=== PATIENT | male | born 1970 | race Caucasian/White ===

== ENCOUNTER 2017-02-16 17:29 | Inpatient (IN) | payer OTHER ==
[2017-02-16] MEDS ORDERED: NORMAL SALINE 1,000 ML IV ONE (17:40)
--- OUTSIDE RECORDS SUMMARY | 2017-02-16 17:59 | XMS REPORT | Clinical Summary ---
:1970 Author Organization [facility] Address Unavailable [place] Montes [address] Care Team Providers Name Role Phone Unavailable Primary Care Provider Unavailable Source Comments This disclosure is being made pursuant to the [employer] program and maynot contain all information available regarding this patient.[facility] Allergies No Known Allergies Current Medications Be aware that medications may not be up to date as of this document. Alwaysverify current medications with the patient. Prescription Sig. Disp. Refills Start Date End Date Status aspirin 81 MG EC Take 81 mg by Active tablet mouth daily. atorvastatin (LIPITOR) Take 40 mg by Active 80 MG tablet mouth every evening. clopidogrel (PLAVIX) Take 75 mg by Active 75 MG tablet mouth daily. metoprolol succinate Take 25 mg by Active (TOPROL-XL) 25 MG 24 mouth daily. hr tablet DULoxetine (CYMBALTA) Take 1 capsule by 30 capsule 6 10/19/2015 Active 60 MG capsule mouth daily. lisinopril Take 2.5 mg by Active (PRINIVIL,ZESTRIL) 2.5 mouth daily. MG tablet fluticasone (FLONASE) 2 sprays by Nasal Active 50 MCG/ACT nasal spray route daily. to each nostril Unclassified (UNABLE Durable Medical Active TO FIND) Equipment, Front wheeled walker mupirocin (BACTROBAN) Apply a small Active 2 % ointment amount to affected area(s) twice daily. albuterol (PROAIR Inhale 2 puffs Active HFA;PROVENTIL into the lungs HFA;VENTOLIN HFA) 108 every 4 (four) to (90 Base) MCG/ACT 6 (six) hours as inhaler needed. Active Problems Problem Noted Date Bilateral carpal tunnel syndrome 01/22/2017 Cervicalgia 09/15/2014 Myoclonus 09/15/2014 Spinal stenosis in cervical region 05/06/2014 Dystonia 05/06/2014 Encounters Date Type Specialty Care Team Description 02/14/2017 Orders Only Provider, Not In System 01/22/2017 Office Visit Orthopedic Surgery Arianna, Bilateral carpal tunnel MD Shiva syndrome (Primary Dx) 01/05/2017 Abstract Orthopedic Surgery Edilma Gaming RN from Last 3 Months Family History Medical History Relation Name Comments Cancer Father oral Cancer Maternal Grandfather Diabetes Maternal Grandfather Dementia Maternal Grandmother No Known Problems Mother Relation Name Status Comments Father (Age 56) Maternal Grandfather (Age 48) Maternal Grandmother Mother Social History Tobacco Use Types Packs/Day Years Used Date Current Every Day Smoker 1 Smokeless Tobacco: Never Used Tobacco Cessation:Ready to Quit: Yes; Counseling Given: Yes Alcohol Use Drinks/Week oz/Week Comments No Alcoholic Drinks/day: CURRENT ALCOHOL USER Sex Assigned at Date Recorded Not on file Last Filed Vital Signs Vital Sign Reading Time Taken Blood Pressure 108/73 02/13/2017 2:04 PM CDT Pulse 74 02/13/2017 2:04 PM CDT Temperature 36.6 C (97.9 F) 01/22/2017 2:36 PM CDT Respiratory Rate 18 01/22/2017 2:36 PM CDT Oxygen Saturation 100% 02/13/2017 2:04 PM CDT Inhaled Oxygen Concentration - - Weight 52.2 kg (115 lb) 01/22/2017 2:36 PM CDT Height 162.6 cm (5' 4") 01/22/2017 2:36 PM CDT Body Mass Index 19.74 01/22/2017 2:36 PM CDT Plan of Treatment Date Type Specialty Care Team Description 02/21/2017 Appointment Orthopedic Surgery Shiva Keller MD [address] [place] [phone] Health Maintenance Due Date Last Done Comments Pneumococcal Medium Risk 19-64 yo (1 of 1 - PPSV23) 1989 Tetanus/Pertussis (1 - Tdap) 1989 INFLUENZA IMMUNIZATION (#1) 2017 Results EMG (01/03/2017)from Last 3 Months Insurance Payer Benefit Plan / Subscriber ID Type Phone Address Group [employer] OF [employer] [facility] [id number] Out of State [phone] [facility] PROVIDERS ONLY [address] [place] [address] [employer] [employer] [id number] [facility] [phone] [place] [address] [place], [place] [id number] Home: [address] [phone] [place], [place] [address]
[2017-02-16 18:00] LABS: Hematocrit 30.1 % (42.0-52.0); Hemoglobin 10.3 gm/dL (13.5-18.0); Mean Cell Volume 98.4 fl (78-100); Mean Corpuscular Hemoglobin 33.7 pg (27-31); Mean Corpuscular Hgb Conc 34.2 g/dl (32-36); Mean Platelet Volume 9.6 fl (6.0-9.5); Platelet Count 469 K/mm3 (150-450); Red Blood Count 3.06 M/mm3 (4.7-6.0); Red Cell Distribution Width 14.9 % (11.5-14.0); White Blood Count 11.7 K/mm3 (4.0-10.5)
--- OUTSIDE RECORDS SUMMARY | 2017-02-16 18:00 | XMS REPORT | Encounter Summary ---
:1970 Author Organization [employer] Address Unavailable CARYN Montes [address] Care Team Providers Name Role Phone Unavailable Primary Care Provider Unavailable Reason for Visit Reason Comments Hand Pain bilateral hands Numbness bilateral hands Encounter Details Date Type Department Care Team Description 01/22/2017 Office Visit [facility] Arianna, Bilateral carpal Neil Orthopedics MD Shiva tunnel syndrome [address] (Primary Dx) [address] [facility] 3 [place] [address] [place], [place] [phone] Social History Tobacco Use Types Packs/Day Years Used Date Current Every Day Smoker 1 Smokeless Tobacco: Never Used Alcohol Use Drinks/Week oz/Week Comments No Alcoholic Drinks/day: CURRENT ALCOHOL USER Sex Assigned at Date Recorded Not on file as of this encounter Last Filed Vital Signs Vital Sign Reading Time Taken Blood Pressure 124/83 01/22/2017 2:36 PM CDT Pulse 93 01/22/2017 2:36 PM CDT Temperature 36.6 C (97.9 F) 01/22/2017 2:36 PM CDT Respiratory Rate 18 01/22/2017 2:36 PM CDT Oxygen Saturation 98% 01/22/2017 2:36 PM CDT Inhaled Oxygen Concentration - - Weight 52.2 kg (115 lb) 01/22/2017 2:36 PM CDT Height 162.6 cm (5' 4") 01/22/2017 2:36 PM CDT Body Mass Index 19.74 01/22/2017 2:36 PM CDT in this encounter Instructions Patient Instructions - Ursula Gunn RN - 01/22/2017 3:02 PM CDTPatient Recommendations: DATES FOR SURGERY AND PRE-OP APPOINTMENTS: Your surgery is planned for 02/06/17. This date pending surgical approval by your insurance company. [facility] [employer] will confirm the actual time of your surgery the day prior to surgery. SURGERY CONSENT The surigcal risks have been explained and you have SIGNED the consent for surgery. INSURANCE PRE-CERTIFICATION: Your insurance pre-certifcation is not yet completed. Our office will contact you if we need to reschedule your surgery due to insurance approval. PRE-SURGICAL INSTUCTIONS: Complete the body washing instructions as described in the surgery preparation handout and as instructed in your pre-surgery education session. You may have a LIGHT breakfast the morning of your procedure. You will need to take any medication for heart, blood pressure, or seizures with a SIP of water the morning of your procedure. POST SURGICAL WOUND (surgical site) CARE: After you leave the hospital or surgery center, it is important that your surgical site (wound) is kept clean and dry. This helps you heal faster and helps prevent infection. Follow these instructions unless told otherwise by your doctors. Always wash your hands before and after touching your wound or the dressing of your wound. Keep area clean and dry. Avoid touching incision directly, getting dressing wet or scratching area around dressing. Follow the Doctor's discharge instructions given by the surgical staff. Contact our office if you have any problems with your surgical site dressing. POST SURGICAL COMPLICATION INSTRUCTIONS: Call our office if you develop new symptoms such as: You have a fever> 101. Inreased wound pain not related to activity. Increased cloudy andor colored drainage from wound. The wound opens up and/or becomes hot, red and tender. The wound has excessive drainage or dressing becomes wet. You have unusual shortness of breath or experience unusal chest pain. POST SURGICAL APPOINTMENTS A follow-up appointment will be scheduled by the surgical department prior to your discharge. Please contact our office if you did not receive an appointment date and time with the doctor or nurse when discharged from the hospital after surgery.in this encounter Progress Notes Shiva Keller MD - 01/22/2017 2:25 PM CDTFormatting of this note may be different from the original. Subjective: Patient ID: Mukesh Montague is a 46 y.o. male. Chief Complaint: HPI Patient states that his bilateral pain in hands has bothered him since he was about 17 years old, but in the last few years the pain, numbness, tingling and lightening bolt feeling has increased to multiple times daily. Patient states that painis a 7 on pian scale 0-10 on bad days. HE has had EMG studies done by Dr. Wolf at [facility]. 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 Patient states that he has numbness in all fingers, and the knuckles feel like they drop out of place on the LEFT hand. Bilateral hand pain and numbness. Social History Occupational History Employer Unknown Social History Main Topics Smoking status: Current Every Day Smoker -- 1.00 packs/day Smokeless tobacco: Never Used Alcohol Use: No Comment: Alcoholic Drinks/day: CURRENT ALCOHOL USER Drug Use: No Sexual Activity: Not on file Review of Systems Constitutional: Negative. HENT: Negative. Eyes: Negative. Respiratory: Negative. Cardiovascular: Negative. Gastrointestinal: Negative. Endocrine: Negative. Genitourinary: Negative. Musculoskeletal: Positive for arthralgias (bilateral hand pain and numbness). Skin: Negative. Allergic/Immunologic: Negative. Neurological: Negative. Hematological: Negative. Psychiatric/Behavioral: Negative. Objective: Ortho Exam Ears- Normal external ear bilaterally. Heart- S1 and S2 heard with normal rate and rhytm. Lungs- Clear lungs sounds bilaterally. Gastro- Active bowel sounds in all 4 quadrants. Pscyo- Alert and oriented X 3. MSK; BILATERAL HANDS W/O ATROPHY OR DEFORMITY +PHALENS BILATERAL +TINELS AT WRIST BILATERAL DIMINSHED MEDIAN SENSORY BILATERAL WORSE L INDEX COMPLETELY NUMB APB AND DI INTACT Assessment: 1. Bilateral carpal tunnel syndrome Plan: Bilateral Carpal tunnel release ESTIMATED TIME ALLOWED: 1 hours Hospital Status:outpatient, Surgery date is planned for 02/06/17, Pre-op Education at [facility]: none needed, History and physical with Lizette Felix DO: none needed. SURGICAL CONSENT: The surigcal risks have been explained and the consent for surgery has been signed. PAR CONSENT SIGNED: Yes. LATEX ALLERGY: No: INSURANCE PRE-CERTIFICATION:To be completed PRE-OP LABORATORY/ORDERS: None needed PRE-OP INSTRUCTIONS: Body washing instructions Yes NPO after midnight the night before surgery yes Instructed to take heart, blood pressure, and seizure medication with a sip of water: Yes ANESTHESIA: local DAY OF SURGERY MEDICATION ORDER: Mediation order: Ativan 2 mg oral preop. Kelfex 500 mg 1 oral preop. Orally VENDOR: none SPECIAL SURGERY EQUIPMENT: none POST-OP WOUND CARE: Post-op surgical site instructions have been given to the patient. Wash hands before and after touching wound., Keep area clean and dry, Avoid touching, scratching and getting dressing wet, Follow the Doctor's discharge instructions given by the surgical staff. POST-OP COMPLICATION INSTRUCTIONS: Instructed to call if he develops new or worsening symptoms, including fever, increasing pain, cloudy and/or colored wound drainage, wound opens, excessive draining,shortness of breath, and chest pain. POST-OP APPOINTMENTS: Schedule a post-op follow-up appointment in 7 day(s). in this encounter Plan of Treatment Date Type Specialty Care Team Description 02/21/2017 Appointment Orthopedic Surgery Shiva Keller MD [address] [phone] as of this encounter Visit Diagnoses Diagnosis Bilateral carpal tunnel syndrome - Primary Carpal tunnel syndrome in this encounter
--- OUTSIDE RECORDS SUMMARY | 2017-02-16 18:00 | XMS REPORT | Encounter Summary ---
:1970 Author Organization [employer] [place] [address] Care Team Providers Name Role Phone Unavailable Primary Care Provider Unavailable Encounter Details Date Type Department Care Team Description 02/14/2017 Orders Only [facility] Provider, Not In Centralized Scanning System Social History Tobacco Use Types Packs/Day Years Used Date Current Every Day Smoker 1 Smokeless Tobacco: Never Used Alcohol Use Drinks/Week oz/Week Comments No Alcoholic Drinks/day: CURRENT ALCOHOL USER Sex Assigned at Date Recorded Not on file as of this encounter Plan of Treatment Date Type Specialty Care Team Description 02/21/2017 Appointment Orthopedic Surgery Shiva Keller MD [employer] [facility] [phone] as of this encounter Visit Diagnoses Not on filein this encounter
--- OUTSIDE RECORDS SUMMARY | 2017-02-16 18:00 | XMS REPORT | Encounter Summary ---
:1970 Author Organization [employer] [place] [address] Care Team Providers Name Role Phone Unavailable Primary Care Provider Unavailable Encounter Details Date Type Department Care Team Description 01/05/2017 [facility] [address] [place] [address], [facility] [address] [place] [address] [place] [address] Social History Tobacco Use Types Packs/Day Years Used Date Current Every Day Smoker 1 Smokeless Tobacco: Never Used Alcohol Use Drinks/Week oz/Week Comments No Alcoholic Drinks/day: CURRENT ALCOHOL USER Sex Assigned at Date Recorded Not on file as of this encounter Plan of Treatment Date Type Specialty Care Team Description 02/21/2017 Appointment [place] [address] [place] [address] 3 [place] [phone] as of this encounter Visit Diagnoses Not on filein this encounter
[2017-02-16] MEDS ORDERED: HYDROmorphone HCL 1 MG/ML DISP.SYRIN IV ONE (18:16)
--- NOTE | 2017-02-16 18:16 | ERNOTE ---
Medical Problem HPI - Narrative Date of Service: 02/16/17 - General Chief Complaint: General Assessment Time Seen by Provider: 02/16/17 17:31 Source: patient Exam Limitations: no limitations - Immun/Allergies/Home Medications Immunizations: IMMUNIZATION HX Immunizations Up to Date No History of Influenza Vaccine No Allergies/Adverse Reactions: Allergies No Known Allergies Allergy (Unverified 02/16/17 17:41) Home Medications: HOME MEDICATIONS Aspirin [Children's Aspirin] 81 mg PO DAILY 02/16/17 [Last Taken Unknown] Atorvastatin Calcium [Lipitor] 40 mg PO HS 02/16/17 [Last Taken Unknown] Duloxetine HCl [Cymbalta] 60 mg PO DAILY 02/16/17 [Last Taken Unknown] Lisinopril [Zestril] 2.5 mg PO DAILY 02/16/17 [Last Taken Unknown] Metoprolol Succinate 25 mg PO DAILY 02/16/17 [Last Taken Unknown] Nortriptyline HCl 10 mg PO HS 02/16/17 [Last Taken Unknown] Pantoprazole Sodium [Protonix] 40 mg PO DAILY 02/16/17 [Last Taken Unknown] tiZANidine HCL [Tizanidine HCl] 4 mg PO DAILY 02/16/17 [Last Taken Unknown] - History of Present History Narrative: Patient presents to the ED after being told to go to the ED by his PCP. He was recently in the hospital with acute pancreatitis. He was noted on labs to have increasing lipase. Also increasing live enzymes. He had been in the hospital for 3 days. Does use alcohol. He still has pain in the epigastrium but no vomiting. Nothing makes it better or worse. No diarrhea. No CP or SOB. No fever. Timing: other - fluctuating Severity: moderate Modifying Factors - (Improves): Present: medication Modifying Factors - (Worsens): Present: other - eating Review of Systems - Review of Systems Constitutional: Absent: fever Respiratory: Absent: shortness of breath Cardiology: Absent: chest pain Gastrointestinal/Abdominal: Present: See HPI Genitourinary: Absent: dysuria All Other Systems: All systems neg except as marked - Patient's Past Medical History Patient History - Medical: Arthritis Patient History - Cardiac/Respiratory: Myocardial Infarction Patient History - Cancer: No Hx of Cancer Patient History - Surgical Procedures: Cardiac stent Patient History - Other: None - Social History Living Situations: home Psych History: No pertinent hx Smoking Status: Current every day smoker Have you smoked in the past 12 months: Yes Alcohol Use: none Drug Use: none - Immunizations Immunizations Up to Date: No History of Influenza Vaccine: No Physical Exam - Physical Exam General Appearance: Present: alert, no apparent distress Head Exam: Present: normal inspection Eye Exam: Normal inspection: bilateral, PERRL: bilateral Ears, Nose, Throat: Present: normal ENT inspection Neck: Present: normal inspection Respiratory: Present: no respiratory distress, normal breath sounds, lungs clear Cardiovascular/Chest: Present: regular rate, rhythm Gastrointestinal/Abdominal: Present: normal bowel sounds, soft, tenderness, other - epigastric tenderness without peritoneal signs. Moderate. Back Exam: Present: normal range of motion Extremity Exam: Present: normal inspection Neurological Exam: Present: alert, normal mood/affect, no motor/sensory deficits Skin Exam: Present: normal color, warm/dry ED Progress - Results and Orders Patient's Lab Results:: I have reviewed the patient's lab results. - Vital Signs Patient's Vital Signs:: I have reviewed the patient's vital signs. Vital Signs: Vital Signs 02/16/17 17:38 Temperature 36.8 C Pulse Rate 88 Respiratory 16 Rate Blood Pressure 99/66 O2 Sat by Pulse 99 Oximetry - Progress/Reassessment Chief Complaint: General Assessment Progress Note-Subjective: 02/16/17 19:47 D/W Hospitalist. Admit. RUQ ordered at Hospitalist request. patient agreeable. Departure - Departure Clinical Impression: Pancreatitis Disposition: [facility] Condition: Stable
[2017-02-16 18:21] LABS: Albumin * 2.8 gm/dl (3.4-5.0); Anion Gap 12.8 mmol/L (6.8-13.8); BUN/Creatinine Ratio 4.9 (9.0-21.6); Bilirubin, Total 0.1 mg/dL (0.0-1.1); Ca. Corrected For Albumin 8.6 mg/dL (8.4-10.2); Carbon Dioxide 25.8 mmol/L (24-32.6); Potassium 3.6 mmol/L (3.4-4.6); Total Protein 6.3 gm/dL (6.2-8.2)
[2017-02-16 18:23] LABS: Total Cells Counted 100
[2017-02-16 18:36] LABS: Band 2 % (0-2.0); Eosinophil 3 % (0-3); Lymphocyte 25 % (20-51); Monocyte 9 % (0-9); Neutrophil 61 % (42-75); Neutrophil # 7.1 K/mm3 (1.3-6.0)
[2017-02-16 18:37] LABS: Dohle Bodies 2+; Platelet Estimate Increased (NORMAL); Target Cells 1+
[2017-02-16] MEDS ORDERED: NICOTINE 21 MG PATC TD ONE (19:07)
[2017-02-16] MEDS: NICOTINE 21 MG PATC TD SCH (19:08)
--- OUTSIDE RECORDS SUMMARY | 2017-02-16 19:49 | XMS REPORT | Encounter Summary ---
:1970 Author Organization [employer] [place] [address] Care Team Providers Name Role Phone Unavailable Primary Care Provider Unavailable Encounter Details Date Type Department Care Team Description [facility]/05/2017 [facility] [address] [place] [address], [facility] [address] [place] [address] [place] [address] Social History Tobacco Use Types Packs/Day Years Used Date Current Every Day Smoker 1 Smokeless Tobacco: Never Used Alcohol Use Drinks/Week oz/Week Comments No Alcoholic Drinks/day: CURRENT ALCOHOL USER Sex Assigned at Date Recorded Not on file as of this encounter Plan of Treatment Date Type Specialty Care Team Description 02/21/2017 Appointment [place] [address] [place] [address] 3 [place] [phone] as of this encounter Visit Diagnoses Not on filein this encounter
--- OUTSIDE RECORDS SUMMARY | 2017-02-16 19:49 | XMS REPORT | Encounter Summary ---
:1970 Author Organization [employer] [place] [address] Care Team Providers Name Role Phone Unavailable Primary Care Provider Unavailable Encounter Details Date Type Department Care Team Description 02/14/2017 Orders Only [facility] Provider, Not In Centralized Scanning System Social History Tobacco Use Types Packs/Day Years Used Date Current Every Day Smoker 1 Smokeless Tobacco: Never Used Alcohol Use Drinks/Week oz/Week Comments No Alcoholic Drinks/day: CURRENT ALCOHOL USER Sex Assigned at Date Recorded Not on file as of this encounter Plan of Treatment Date Type Specialty Care Team Description 02/21/2017 Appointment Orthopedic Surgery Shiva Keller MD [facility] [phone] as of this encounter Visit Diagnoses Not on filein this encounter
--- OUTSIDE RECORDS SUMMARY | 2017-02-16 19:49 | XMS REPORT | Encounter Summary ---
:1970 Author Organization [employer] Address Unavailable CARY[place] Montes [address] Care Team Providers Name Role Phone Unavailable Primary Care Provider Unavailable Reason for Visit Reason Comments Hand Pain bilateral hands Numbness bilateral hands Encounter Details Date Type Department Care Team Description 01/22/2017 Office Visit [facility] Arianna, Bilateral carpal Neil Orthopedics MD Shiva tunnel syndrome [address] (Primary Dx) [address] [facility] 3 [place] [address] [place], [place] [phone] Social History Tobacco Use Types Packs/Day [...] surgical approval by your insurance company. [facility] will confirm the actual time of your [...] EMG studies done by Dr. Wolf at [facility]. 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
--- OUTSIDE RECORDS SUMMARY | 2017-02-16 19:49 | XMS REPORT | Clinical Summary ---
:1970 Author Organization [employer] Address Unavailable CARY[place] Montes [address] Care Team Providers Name Role Phone Unavailable Primary Care Provider Unavailable Source Comments This disclosure is being made pursuant to the [employer] program and maynot contain all information available regarding this patient.[employer] Allergies No Known Allergies Current Medications Be [...] 02/21/2017 Appointment Orthopedic Surgery Shiva Keller MD [address] [place] [phone] Health Maintenance Due Date Last Done Comments Pneumococcal Medium Risk 19-64 yo (1 of 1 - PPSV23) 1989 Tetanus/Pertussis (1 - Tdap) 1989 INFLUENZA IMMUNIZATION (#1) 2017 Results EMG (01/03/2017)from Last 3 Months Insurance Payer Benefit Plan / Subscriber ID Type Phone Address Group [employer] [facility] [id number] Out of State [phone] [facility] PROVIDERS ONLY [address] [place] [address] [employer] [id number] [facility] [phone] [place] [address] [place], [place] [id number] Home: [address] [phone] [place], [place] [address]
[2017-02-16] MEDS ORDERED: HYDROmorphone HCL 1 MG/ML DISP.SYRIN ONE (20:03)
--- NOTE | 2017-02-16 21:08 | HP ---
Chief Complaint - Chief Complaint Date of Service: 02/16/17 Time of Service: 21:00 Chief Complaint: " Elevated Liver Enzymes". Source of HPI- Pt; reliable, ER provider report. History of Present Illness: Mr. Montague is a 46-yr-old pt who normally sees RAVINDER Irizarry in [place]. His PMH is significant for: Alcohol Dependence, Depression, HTN & MS-s/ p stents in 2014. Pt states that on Last week (02/08/17), he had developed severe abdominal pain that wouldn't go away for the entire day.The pain was accompanied by nausea & vomiting and was worsened with food. He presented to the [facility] later Night where lab-work showed his Amylase and Lipase were dramatically elevated at [address] scan obtained there confirmed he had Acute Pancreatitis. He was kept NPO and diet was slowly advanced to full liquid. However on 02/11, pt demanded to be discharged home. His Amylase and Lipase levels had fallen to nearly limits (168 & 309). His abdominal pain had subsided. He was discharged on Protonix and counselled on stopping alcohol consumption. Pt admits to drinking 12-pack of beer daily and smokes 1 ppd despite suffering an MS 2 yrs ago. He states that he has felt well since being discharged and has cut his alcoholic beverage to 4 cans of beer daily. He states that the only reason for coming to the ED today was because he was advised by his PCP that he needed his lab-work rechecked. His lab results at the ED today was remarkable for elevated Amylase/lipase at 155 & 1751.The US of the abdomen obtained tonight confirmed Acute Pancreatitis, but there was no CBD dilatation, gall bladder sludge /stone, or intrahepatic or extrahepatic dilatation. Mr. Montague denies fever or chills. He also denies nausea, vomiting, and Abdominal Pain. He will be admitted under observation status for acute pancreatitis. - Patient's Past Medical History Patient History - Medical: Arthritis, Depression Patient History - Cardiac/Respiratory: Hypertension, Myocardial Infarction Patient History - Cancer: No Hx of Cancer Patient History - Surgical Procedures: Cardiac stent Patient History - Other: None - Family History Father Family History - Medical: Family History - Cancer: Throat - Social History Living Situations: home Psych History: No pertinent hx Smoking Status: Current every day smoker Have you smoked in the past 12 months: Yes Alcohol Use: none Drug Use: none - Immunizations Immunizations Up to Date: No History of Influenza Vaccine: No Review Of Systems (GEN) - Review of Systems Generalized/Overall Review: Absent: Weakness, Chills, Fever, Malaise, Diaphoresis, Weight loss EENTM: Absent: Eye Pain, Blurred Vision, Nose Congestion Respiratory: Absent: Shortness of Breath, Orthopnea Cardiac: Absent: Chest Pain, Edema, Palpitations Abdominal: Absent: Nausea, Vomiting, Hematemesis, Abdominal Pain Genitourinary: Absent: Burning, Itching, Urgency, Frequency Musculoskeletal: Absent: Joint Pain, Back Pain, Joint Swelling Neurological: Absent: Headache, Anxiety, Depressed Skin: Absent: Dryness, Lesions Endocrine: Absent: Intolerance to Cold, Intolerance to Heat, Flushing, Increased Thirst Misc: All systems neg except as marked Immunizations: IMMUNIZATION HX Immunizations Up to Date No History of Influenza Vaccine No Allergies/Adverse Reactions: Allergies Allergy/AdvReac Type Severity Reaction Status Date / Time No Known Allergies Allergy Unverified 02/16/17 17:41 Home Medications: HOME MEDICATIONS Aspirin [Children's Aspirin] 81 mg PO DAILY 02/16/17 [Last Taken Unknown] Atorvastatin Calcium [Lipitor] 40 mg PO HS 02/16/17 [Last Taken Unknown] Duloxetine HCl [Cymbalta] 60 mg PO DAILY 02/16/17 [Last Taken Unknown] Lisinopril [Zestril] 2.5 mg PO DAILY 02/16/17 [Last Taken Unknown] Metoprolol Succinate 25 mg PO DAILY 02/16/17 [Last Taken Unknown] Nortriptyline HCl 10 mg PO HS 02/16/17 [Last Taken Unknown] Pantoprazole Sodium [Protonix] 40 mg PO DAILY 02/16/17 [Last Taken Unknown] tiZANidine HCL [Tizanidine HCl] 4 mg PO DAILY 02/16/17 [Last Taken Unknown] Exam - Exam Vital Signs: Vital Signs - Last Taken Temp 36.7 C 02/16/17 20:00 Pulse 89 02/16/17 20:26 Resp 16 02/16/17 20:26 BP 122/78 02/16/17 20:26 Pulse Ox 97 02/16/17 20:26 Constitutional: Present: Alert, Oriented x3, Cooperative, No distress ENT Exam: Present: normal ENT inspection Eye Exam: bilateral eye: normal inspection, PERRL Neck: Present: full range of motion, supple, normal inspection Back Exam: Present: normal inspection, no CVA tenderness Breasts: Present: Exam deferred Respiratory: Present: lungs clear, no accessory muscle use Cardiovascular/Chest: Present: normal peripheral pulses, regular rate, rhythm, no edema, no murmur Abdomen: Present: Normal bowel sounds, soft, tender - LLQ /Rectal: Present: Exam deferred Extremity: Present: normal range of motion, non-tender, normal inspection Skin Exam: Present: warm/dry, no cyanosis Lymphatic: Present: no adenopathy Neurologic: Present: no motor/sensory deficits, alert, normal mood/affect, oriented x 3 Appearance: Present: appropriate appearance, appropriate insight Eye contact: Present: cooperative, good eye contact, normal speech Thoughts: Present: normal thought pattern, no apparent hallucination Diagnostic Studies: Laboratory Results WBC 11.7 K/mm3 (4.0-10.5) H 02/16/17 17:50 RBC 3.06 M/mm3 (4.7-6.0) L 02/16/17 17:50 Hgb 10.3 gm/dL (13.5-18.0) L 02/16/17 17:50 Hct 30.1 % (42.0-52.0) L 02/16/17 17:50 MCV 98.4 fl (78-100) 02/16/17 17:50 MCH 33.7 pg (27-31) H 02/16/17 17:50 MCHC 34.2 g/dl (32-36) 02/16/17 17:50 RDW 14.9 % (11.5-14.0) H 02/16/17 17:50 Plt Count 469 K/mm3 (150-450) H 02/16/17 17:50 MPV 9.6 fl (6.0-9.5) H 02/16/17 17:50 Neutrophils % (Manual) 61 % (42-75) 02/16/17 17:50 Band Neuts % (Manual) 2 % (0-2.0) 02/16/17 17:50 Lymphocytes % (Manual) 25 % (20-51) 02/16/17 17:50 Monocytes % (Manual) 9 % (0-9) 02/16/17 17:50 Eosinophils % (Manual) 3 % (0-3) 02/16/17 17:50 Neutrophils # (Manual) 7.1 K/mm3 (1.3-6.0) H 02/16/17 17:50 Lymphocytes # (Manual) 2.9 k/mm3 (1.5-3.5) 02/16/17 17:50 Monocytes # (Manual) 1.1 k/mm3 (0.0-1.0) H 02/16/17 17:50 Eosinophils # (Manual) 0.4 k/mm3 (0.0-0.7) 02/16/17 17:50 Toxic Vacuolation Trace 02/16/17 17:50 Dohle Bodies 2+ 02/16/17 17:50 Platelet Estimate Increased (NORMAL) H 02/16/17 17:50 Target Cells 1+ 02/16/17 17:50 Sodium 135 mmol/L (132-142) 02/16/17 17:50 Plasma Sodium 135 mmol/L (130-142) 02/16/17 17:50 Potassium 3.6 mmol/L (3.4-4.6) 02/16/17 17:50 Chloride 100 mmol/L (97-106) 02/16/17 17:50 Carbon Dioxide 25.8 mmol/L (24-32.6) 02/16/17 17:50 Anion Gap 12.8 mmol/L (6.8-13.8) 02/16/17 17:50 BUN 3 mg/dL (6-23) L 02/16/17 17:50 Creatinine 0.61 mg/dL (0.4-1.4) 02/16/17 17:50 Est GFR (Non-Af Amer) 151 mL/min (60-130) H 02/16/17 17:50 BUN/Creatinine Ratio 4.9 (9.0-21.6) L 02/16/17 17:50 Random Glucose 99 mg/dL (70-110) 02/16/17 17:50 Lactic Acid, Venous 1.9 mmol/L (0.4-1.9) 02/16/17 17:50 Calcium 8.0 mg/dL (7.9-10.9) 02/16/17 17:50 Calcium Adj for Albumin 8.6 mg/dL (8.4-10.2) 02/16/17 17:50 Total Bilirubin 0.1 mg/dL (0.0-1.1) 02/16/17 17:50 AST 40 U/L (0-48) 02/16/17 17:50 ALT 65 U/L (19-67) 02/16/17 17:50 Alkaline Phosphatase 90 U/L (50-170) 02/16/17 17:50 Total Protein 6.3 gm/dL (6.2-8.2) 02/16/17 17:50 Albumin 2.8 gm/dl (3.4-5.0) L 02/16/17 17:50 Amylase 155 U/L (25-115) H 02/16/17 17:50 Lipase 1751 U/L (73-393) H 02/16/17 17:50 Ethyl Alcohol 50.0 mg/dL (0.0-10.0) H 02/16/17 17:50 Assessment/Plan - Assessment/Plan (1) Acute pancreatitis Assessment: Mr. Montague presented to the ED following advise by PCP for his lab-work to be rechecked. He denied having the epigastric tenderness,fevers and chills & n/v. He reported feeling 'infact better than any other times.' and nothing like last week's hospitalization. Lab-work was remarkable for elevated Amylase/ Lipase which were found to be 155/1751. Prior to discharge on 02/11/17 from the [facility], his Amylase/lipase levels were near normal at 169/309. The CT scan that had been obtained at [facility] had confirmed Acute Pancreatitis. An US of the Abdomen was obtained while at the [facility] last night and it also confirmed Acute Pancreatitis and it did not show any evidence of gallstone/sludge and, there was no dilation of the intrahepatic and extrahepatic biliary dilatation, thus eliminating biliary tract disease or gallstone induced pancreatitis. The new medication he was recently started on was Protonix, otherwise he has taken most of this other medications for about 2 yrs and therefore do not suspect that the medications played a role in his acute pancreatitis. I suspect that this is alcohol related especially since his Amylase/lipase levels were nearly normal on day of discharge at [facility], and he admitted to cutting down to 4 cans of beers daily from 12 pck after hospitalization. Will provide aggrassive IVF hydration with LR to prevent pancreatic necrosis. I counselled him again strongly about avoidance of Alcohol in which he seems agreeable, but doubt if he will carry through with the understanding. Since he is asymptomatic, oral feeding may be restarted and therefore will resume regular diet in am. Trend Amylase/Lipase levels. Problem: Acute (2) EtOH dependence Assessment: Will monitor for Alcohol withdrawal syndrome. Use CIWA-Ar to monitor for Withdrawal and Treatment. Consider starting folic acid daily Problem: Chronic (3) Anemia Assessment: Hbg while at [facility] was noted to be 14 and on this admission it is down to 10.3. MCV noted 98 therefore its Macrocytic Anemia and one of the causes are: excess alcohol use or folate and vitamin B12 deficiency. Consider checking the levels. Problem: Acute (4) HTN (hypertension) Assessment: Stable- On metoprolol and Lisinopril. Problem: Chronic (5) Depression Assessment: Stable- On cymbalta and Nortriptyline Problem: Chronic
[2017-02-16] MEDS: RINGER'S SOLUTION,LACTATED 1,000 ML IV PRN (22:26)
[2017-02-17] MEDS ORDERED: ONDANSETRON HCL/PF 2 MG/ML VIAL IV PRN (02:49)
[2017-02-17] MEDS: RINGER'S SOLUTION,LACTATED 1,000 ML IV PRN ×6 (02:52→23:03)
[2017-02-17] MEDS: HYDROmorphone HCL 1 MG/ML DISP.SYRIN IV PRN ×6 (03:52→23:53)
[2017-02-17 05:49] LABS: Hematocrit 29.7 % (42.0-52.0); Hemoglobin 10.3 gm/dL (13.5-18.0); Mean Cell Volume 97.4 fl (78-100); Mean Corpuscular Hemoglobin 33.8 pg (27-31); Mean Corpuscular Hgb Conc 34.7 g/dl (32-36); Mean Platelet Volume 9.7 fl (6.0-9.5); Neutrophil # 6.1 K/mm3 (1.3-6.0); Neutrophil % 59.7 % (42-75.0); Platelet Count 452 K/mm3 (150-450); Red Blood Count 3.05 M/mm3 (4.7-6.0); Red Cell Distribution Width 15.1 % (11.5-14.0); White Blood Count 10.3 K/mm3 (4.0-10.5)
--- NOTE | 2017-02-17 05:55 | PN ---
Subjective - Date and Time Seen Date: 02/17/17 Time: 05:52 Subjective Narrative: Mr. Garcia examined this am. Denies having any nausea or vomiting. Also denies abdominal pain. Says he is ready to quit alcohol with this hospitalization. No other issues according to nursing. Objective - Vitals Vitals: Last Vital Signs Temp 37.0 C 02/17/17 03:00 Pulse 67 02/17/17 03:01 Resp 18 02/17/17 03:00 BP 126/88 02/17/17 03:00 Pulse Ox 94 02/17/17 03:00 - Exam Constitutional: Present: Alert, Oriented x3, Cooperative, No distress ENT Exam: Present: normal ENT inspection, hearing grossly normal Neck: Present: non-tender, full range of motion, supple Breasts: Present: Exam deferred Respiratory: Present: lungs clear, No wheezing Cardiovascular/Chest: Present: normal peripheral pulses, regular rate, rhythm, no chest tenderness, no edema Abdomen: Present: Normal bowel sounds, soft, nontender /Rectal: Present: Exam deferred Extremity: Present: normal range of motion, non-tender, normal inspection Skin Exam: Present: warm/dry, no cyanosis Lymphatic: Present: no adenopathy Neurologic: Present: no motor/sensory deficits, alert, normal mood/affect, oriented x 3 Appearance: Present: appropriate appearance, appropriate insight Eye contact: Present: cooperative, good eye contact, normal speech Thoughts: Present: normal thought pattern, no apparent hallucination Assessment/Plan - Problems/Diagnosis (1) Acute pancreatitis Problem: Acute Narrative: Mr. Montague presented to the ED following advise by PCP for his lab-work to be rechecked. He denied having the epigastric tenderness,fevers and chills & n/v. He reported feeling 'infact better than any other times.' and nothing like last week's hospitalization. Lab-work was remarkable for elevated Amylase/ Lipase which were found to be 155/1751. Prior to discharge on 02/11/17 from the [facility], his Amylase/lipase levels were near normal at 169/309. The CT scan that had been obtained at [facility] had confirmed Acute Pancreatitis. An US of the Abdomen was obtained while at the [facility] last night and it also confirmed Acute Pancreatitis and it did not show any evidence of gallstone/sludge and, there was no dilation of the intrahepatic and extrahepatic biliary dilatation, thus eliminating biliary tract disease or gallstone induced pancreatitis. The new medication he was recently started on was Protonix, otherwise he has taken most of this other medications for about 2 yrs and therefore do not suspect that the medications played a role in his Acute Pancreatitis. I suspect that this is alcohol related especially since his Amylase/lipase levels were nearly normal on day of discharge at [facility], and he admitted to cutting down to 4 cans of beers daily from 12 pck after hospitalization. Continue with aggressive IVF hydration with LR to prevent pancreatic necrosis. I provided additional counselling again today on alcohol cessation and pt states that after this hospitalization, he is going to refrain from alcohol drinking. Will Advance diet to full liquid and trend the Pancreatic enzymes with am labs. (2) EtOH dependence Problem: Chronic Narrative: Will monitor for Alcohol withdrawal syndrome. Use CIWA-Ar to monitor for Withdrawal and Treatment. Consider starting folic acid daily (3) Anemia Problem: Acute Narrative: Hbg while at [facility] was noted to be 14 and on this admission it is down to 10.3. MCV noted 98 therefore its Macrocytic Anemia and one of the causes are: excess alcohol use or folate and vitamin B12 deficiency. Consider checking the levels. (4) HTN (hypertension) Problem: Chronic Narrative: Stable- On metoprolol and Lisinopril. (5) Depression Problem: Chronic Narrative: Stable- On cymbalta and Nortriptyline
[2017-02-17 06:03] LABS: Amylase * 108 U/L (25-115); Lipase 1034 U/L (73-393)
[2017-02-17] MEDS: ASPIRIN 81 MG TAB.CHEW PO SCH (09:55)
[2017-02-17] MEDS: METOPROLOL SUCCINATE 25 MG TABLET.SA PO SCH (09:55)
[2017-02-17] MEDS: PANTOPRAZOLE SODIUM 40 MG TABLET.EC PO SCH (09:55)
[2017-02-17] MEDS: LISINOPRIL 2.5 MG TABLET PO SCH (09:55)
[2017-02-17] MEDS: DULoxetine HCL 30 MG CAPSULE.SA PO SCH (09:56)
[2017-02-17] MEDS: tiZANidine HCL 4 MG TABLET PO SCH (09:56)
[2017-02-17] MEDS: NICOTINE 21 MG PATC TD SCH (19:07)
[2017-02-17] MEDS: ROSUVASTATIN CALCIUM 20 MG TABLET PO SCH (20:21)
[2017-02-17] MEDS: NORTRIPTYLINE HCL 10 MG CAPSULE PO SCH (20:21)
[2017-02-17] MEDS ORDERED: ATORVASTATIN CALCIUM 40 MG TABLET PO SCH (21:00)
[2017-02-18] MEDS: HYDROmorphone HCL 1 MG/ML DISP.SYRIN IV PRN ×4 (02:35→23:48)
[2017-02-18] MEDS: RINGER'S SOLUTION,LACTATED 1,000 ML IV PRN (03:09)
--- NOTE | 2017-02-18 06:53 | PN ---
Subjective - Date and Time Seen Date: 02/18/17 Time: 06:50 Subjective Narrative: Mr. Montague examined this am. Feels hungry and wants to eat. Denies having n/v. States his abdomen hurts but believes its because of lack of eating real food. No other acute events according to nursing. Lipase still elevated with this am lab, but trending down. Objective - Vitals Vitals: Last Vital Signs Temp 36.8 C 02/18/17 02:24 Pulse 68 02/18/17 02:24 Resp 22 H 02/18/17 02:24 BP 140/79 02/18/17 02:24 Pulse Ox 96 02/18/17 02:24 - Abnormal Lab Findings Abnormal Lab Findings: Abnormal Lab Results 02/18/17 Range/Units 05:40 Lipase 738 H (73-393) U/L - Exam Constitutional: Present: Alert, Oriented x3, Cooperative, No distress ENT Exam: Present: normal ENT inspection, hearing grossly normal Neck: Present: non-tender, full range of motion, supple Breasts: Present: Exam deferred Respiratory: Present: lungs clear, normal breath sounds Abdomen: Present: Normal bowel sounds, soft, nontender /Rectal: Present: Exam deferred Extremity: Present: normal range of motion, non-tender, normal inspection, no pedal edema, no calf tenderness Skin Exam: Present: warm/dry, no cyanosis Lymphatic: Present: no adenopathy Neurologic: Present: no motor/sensory deficits, alert, normal mood/affect, oriented x 3. Absent: dizzy/light-headedness Appearance: Present: appropriate appearance, appropriate insight Eye contact: Present: cooperative, good eye contact, normal speech Thoughts: Present: normal thought pattern, no apparent hallucination Assessment/Plan - Problems/Diagnosis (1) Acute pancreatitis Problem: Acute Narrative: Acute pancreatitis likely related to Alcoholism as the US did not suggest any biliary tract disease or gallstone induced pancreatitis. Received aggressive IVF hydration. Will stop the IVF this am. Will advance his diet to Low fiber. Lipase is slowly trending down, This am it is 738. Will plan to discharge when its near normal. repeat lipase in am. (2) EtOH dependence Problem: Chronic Narrative: Not having any signs of alcohol withdrawal symptoms. Continue reinforcing Etoh cessation. Continue protonix-started on this while at [facility] due heavy etoh use and abdominal pain. (3) Anemia Problem: Acute Narrative: Hbg while at [facility] was noted to be 13.8 and on this admission it is down to 10.3. MCV noted 98 therefore its Macrocytic Anemia and one of the causes are: excess alcohol use or folate and vitamin B12 deficiency. Consider checking the levels. (4) HTN (hypertension) Problem: Chronic (5) Depression Problem: Chronic
[2017-02-18] MEDS: ASPIRIN 81 MG TAB.CHEW PO SCH (08:52)
[2017-02-18] MEDS: DULoxetine HCL 30 MG CAPSULE.SA PO SCH (08:52)
[2017-02-18] MEDS: PANTOPRAZOLE SODIUM 40 MG TABLET.EC PO SCH (08:52)
[2017-02-18] MEDS: LISINOPRIL 2.5 MG TABLET PO SCH (08:53)
[2017-02-18] MEDS: tiZANidine HCL 4 MG TABLET PO SCH (08:53)
[2017-02-18] MEDS: METOPROLOL SUCCINATE 25 MG TABLET.SA PO SCH (08:53)
[2017-02-18] MEDS: NICOTINE 21 MG PATC TD SCH (19:26)
[2017-02-18] MEDS: NORTRIPTYLINE HCL 10 MG CAPSULE PO SCH (20:32)
[2017-02-18] MEDS: ROSUVASTATIN CALCIUM 20 MG TABLET PO SCH (20:32)
[2017-02-19] MEDS: HYDROmorphone HCL 1 MG/ML DISP.SYRIN IV PRN (02:20)
--- NOTE | 2017-02-19 06:00 | DS ---
(1) Acute pancreatitis Problem: Acute (2) EtOH dependence Problem: Chronic (3) Anemia Problem: Acute (4) HTN (hypertension) Problem: Chronic (5) Depression Problem: Chronic Description of Stay: Admission HPI Mr. Montague is a 46-yr-old pt who normally sees RAVINDER Irizarry in [place]. His PMH is significant for: Alcohol Dependence, Depression, HTN & MN-s/ p stents in 2014. Pt states that on Last week (02/08/17), he had developed severe abdominal pain that wouldn't go away for the entire day.The pain was accompanied by nausea & vomiting and was worsened with food. He presented to the [facility] ([facility] later Night where lab-work showed his Amylase and Lipase were dramatically elevated at [address] scan obtained there confirmed he had Acute Pancreatitis. He was kept NPO and diet was slowly advanced to full liquid. However on 02/11, pt demanded to be discharged home. His Amylase and Lipase levels had fallen to nearly limits (168 & 309). His abdominal pain had subsided. He was discharged on Protonix and counselled on stopping alcohol consumption. Pt admits to drinking 12-pack of beer daily and smokes 1 ppd despite suffering an MN 2 yrs ago. He states that he has felt well since being discharged and has cut his alcoholic beverage to 4 cans of beer daily. He states that the only reason for coming to the ED today was because he was advised by his PCP that he needed his lab-work rechecked. His lab results at the ED today was remarkable for elevated Amylase/lipase at 155 & 1751.The US of the abdomen obtained tonight confirmed Acute Pancreatitis, but there was no CBD dilatation, gall bladder sludge /stone, or intrahepatic or extrahepatic dilatation. Mr. Montague denies fever or chills. He also denies nausea, vomiting, and Abdominal Pain. He will be admitted under observation status for acute pancreatitis. Hospital Problems 1.) Acute Pancreatitis Mr. Montague presented to the [facility] ED on 02/17/17 following advise by PCP for his lab-work to be rechecked and ended beeing admitted inpatient until 02/19/17. On day of presentation, he denied having the epigastric tenderness,fevers and chills & n/v. He reported feeling ' in fact better than any other times' and nothing like the prior hospitalization at the [facility]. At the [facility] ED, Lab-work was remarkable for elevated Amylase/ Lipase which were found to be 155/1751. Prior to discharge on 02/11/17 from the [facility], his Amylase/lipase levels were near normal at 169/309. The CT scan that had been obtained at [facility] had confirmed Acute Pancreatitis. An US of the Abdomen was obtained while at the [facility] and it also confirmed Acute Pancreatitis and it did not show any evidence of gallstone/ sludge and, there was no dilation of the intrahepatic and extrahepatic biliary dilatation, thus eliminating biliary tract disease or gallstone induced pancreatitis. The new medication he was recently started on was Protonix, otherwise he has taken most of this other medications for about 2 yrs and therefore did not suspect that the medications played a role in his acute pancreatitis. It was highly suspected that his acute pancreatitis was alcohol related especially since his [facility], and he admitted to cutting down to 4 cans of beers daily from 12 pck after hospitalization. During the hospital stay, he received treatment with aggressive IVF: LR to prevent pancreatic necrosis. His diet was slowly advance from full liquid diet to low fiber diet and he tolerated the diet without any abdominal discomfort. His Amylase /Lipase slowly trended down finally to 108/815 on day of discharge. I counselled him several strongly about avoidance of Alcohol to prevent future pancreatitis episodes and to prevent cardiac events such as heart attack especially since he still smoking. He verbalized the understanding stating that he feels very ready to stop drinking alcohol especially following the second hospitalization. He was determined to be in a stable condition to be discharged home and he will was advised follow-up with his PCP. He will have Lipase level rechecked in 3 days post discharge. 2.) Etoh Abuse/dependence.He was monitored for Alcohol withdrawal syndrome and he did not exhibit any withdrawal symptoms during hospitalization. Counselling offered as stated above. He will continue with Protonix to provide relief of gastritis due to heavy alcohol use and will advise him to take it for about 8 weeks only. 3.) Anemia. Hbg while at [facility] was noted to be 13.8 and on this admission it was noted to be to 10.3. No sign of blood loss. MCV noted 98 therefore Macrocytic Anemia is likely and one of the causes are: excess alcohol use or folate and vitamin B12 deficiency. He will be advised to follow-up with his PCP about being worked-up for Anemia as outpatient. Procedures Performed: none Discharge Disposition: Home self care Disposition: Home self-care Condition: Good Discharge Activity: Activity as tolerated Discharge Diet: Low fat/chol, Low Fiber Referrals: Yajaira Todd ARNP [Primary Care Provider] - Problem Oriented Discharge Instructions to Patient/Family: Alcohol Use Disorder , Gastritis, Adult, [id number], Acute Pancreatitis Additional Patient Instructions (free text): Please follow-up with your PCP next week. You may need additional work-up out patient for your anemia. You will also need your lipase level checked in 3 days after discharge from the hospital. Complete Home Medications List: Complete Home Medication List: Aspirin [Children's Aspirin] 81 mg PO DAILY 02/16/17 Atorvastatin Calcium [Lipitor] 40 mg PO HS 02/16/17 Duloxetine HCl [Cymbalta] 60 mg PO DAILY 02/16/17 Lisinopril [Zestril] 2.5 mg PO DAILY 02/16/17 Metoprolol Succinate 25 mg PO DAILY 02/16/17 Nortriptyline HCl 10 mg PO HS 02/16/17 Pantoprazole Sodium [Protonix] 40 mg PO DAILY 02/16/17 tiZANidine HCL [Tizanidine HCl] 4 mg PO DAILY 02/16/17 HYDROmorphone HCL [Dilaudid] 0.5 mg IV Q2H PRN #0 disp.syrin 02/19/17 Amb Orders for Discharge: Lipase Time Frame: 3 Days, Location: Determined By Patient
[2017-02-19 07:49] VITALS: BP 136/76
[2017-02-19] MEDS: DULoxetine HCL 30 MG CAPSULE.SA PO SCH (09:25)
[2017-02-19] MEDS: PANTOPRAZOLE SODIUM 40 MG TABLET.EC PO SCH (09:25)
[2017-02-19] MEDS: METOPROLOL SUCCINATE 25 MG TABLET.SA PO SCH (09:25)
[2017-02-19] MEDS: ASPIRIN 81 MG TAB.CHEW PO SCH (09:25)
[2017-02-19] MEDS: LISINOPRIL 2.5 MG TABLET PO SCH (09:25)
[2017-02-19] MEDS: tiZANidine HCL 4 MG TABLET PO SCH (09:25)
== END 2017-02-19 10:05 | disposition home or self-care (01) | DRG 440 ==
LOC: ER 17:29 → MS 19:45 → OBSVTOIN 02-17 08:05
PROVIDERS: ADMIT Nurse Practitioner; ATTEND Internal Medicine
DX: K85.20 Alcohol induced acute pancreatitis without necrosis or infection (principal); K29.20 Alcoholic gastritis without bleeding; F10.20 Alcohol dependence, uncomplicated; D53.9 Nutritional anemia, unspecified; F17.210 Nicotine dependence, cigarettes, uncomplicated; I10 Essential (primary) hypertension; I25.2 Old myocardial infarction; Z95.5 Presence of coronary angioplasty implant and graft
CPT/HCPCS: 36415; 76700; 80053; 82150; 83605; 83690; 85025; 96374; 99284; G0378; G0481

== ENCOUNTER 2017-06-17 18:48 | Observation (INO) | payer OTHER ==
[2017-06-17 19:11] LABS: Hematocrit 36.9 % (42.0-52.0); Hemoglobin 12.7 gm/dL (13.5-18.0); Mean Cell Volume 94.6 fl (78-100); Mean Corpuscular Hemoglobin 32.6 pg (27-31); Mean Corpuscular Hgb Conc 34.4 g/dl (32-36); Mean Platelet Volume 10.9 fl (6.0-9.5); Neutrophil # 6.4 K/mm3 (1.3-6.0); Neutrophil % 52.6 % (42-75.0); Platelet Count 284 K/mm3 (150-450); White Blood Count 12.1 K/mm3 (4.0-10.5)
[2017-06-17] MEDS ORDERED: NITROGLYCERIN 0.4 MG/TAB BTL SL ONE ×2 (19:21→19:22)
--- NOTE | 2017-06-17 19:22 | ERNOTE ---
Abdominal HPI - General Chief Complaint: Abdominal Pain Time Seen by Provider: 06/17/17 19:04 Source: patient Exam Limitations: no limitations - Immun/Allergies/Home Medications Immunizatons: IMMUNIZATION HX Immunizations Up to Date Yes History of Influenza Vaccine No Allergies/Adverse Reactions: Allergies No Known Allergies Allergy (Verified 06/17/17 18:57) Home Medications: HOME MEDICATIONS Albuterol Sulfate [Proair Hfa] 2 puff IH QID PRN 06/17/17 [Last Taken Unknown] Aspirin 81 mg PO DAILY 06/17/17 [Last Taken Unknown] Atorvastatin Calcium [Lipitor] 40 mg PO HS 06/17/17 [Last Taken Unknown] Dicyclomine HCl [Bentyl] 20 mg PO TID 06/17/17 [Last Taken Unknown] Duloxetine HCl [Cymbalta] 60 mg PO DAILY 06/17/17 [Last Taken Unknown] Fluticasone Propionate [Flovent Diskus] 50 mcg IH DAILY 06/17/17 [Last Taken Unknown] Meloxicam [Mobic] 15 mg PO DAILY 06/17/17 [Last Taken Unknown] Metoprolol Succinate [Toprol Xl] 25 mg PO DAILY 06/17/17 [Last Taken Unknown] Nortriptyline HCl 10 mg PO HS 06/17/17 [Last Taken Unknown] Pantoprazole Sodium 20 mg PO DAILY 06/17/17 [Last Taken Unknown] tiZANidine HCL [Tizanidine HCl] 4 mg PO TID 06/17/17 [Last Taken Unknown] - History of Present Illness Narrative: Patient has a history of pancreatitis. He was first diagnosed in January 2017 and has had problems on and off ever since. He states that he had extensive evaluation by GI in [facility], was last seen in the ER there about 10 days ago, better for 2-3 days and started to have pain again about a week ago, describes the pain as epigastric, radiating through to his back, worse with laying down, activity and certain foods. He used to be a heavy drinker (24beer/day), has not had a beer since February. He also was diagnosed with an NH in 2014, had two stents placed in [place], the pain at time was radiating to both arms Activities at Onset: none Modifying Factors - (Worsens): Present: lying down, exercise Associated Symptoms: Present: nausea. Absent: headache, chest pain, neck pain, diaphoresis, fever/chills, vomiting, shortness of breath Prior Abdominal Problems: Present: similar symptoms Review of Systems - Review of Systems Constitutional: Present: See HPI, recent illness. Absent: fever ENT: Absent: nose congestion, sore throat Respiratory: Absent: shortness of breath Cardiology: Absent: chest pain Gastrointestinal/Abdominal: Present: See HPI, nausea, abdominal pain. Absent: vomiting Genitourinary: Present: no symptoms reported Musculoskeletal: Absent: back pain Skin: Absent: rash Neurological: Absent: headache, numbness - Patient's Past Medical History Patient History - Medical: Arthritis, Depression, Other Patient History - Cardiac/Respiratory: Myocardial Infarction Patient History - Cancer: No Hx of Cancer Patient History - Surgical Procedures: Cardiac stent, Other Patient History - Other: None - Family History Father Family History - Medical: Family History - Cancer: Throat - Social History Abuse History: Hx of Substance Use Psych History: No pertinent hx Smoking Status: Current every day smoker Have you smoked in the past 12 months: Yes - Immunizations Immunizations Up to Date: Yes History of Influenza Vaccine: No Physical Exam - Physical Exam General Appearance: Present: wd/wn, alert, mild distress Ears, Nose, Throat: Present: normal pharynx Respiratory: Present: no respiratory distress, normal breath sounds, no accessory muscle use, lungs clear Cardiovascular/Chest: Present: regular rate, rhythm, no murmur Gastrointestinal/Abdominal: Present: normal bowel sounds, nondistended, soft, tenderness - epigastric Extremity Exam: Present: no edema Neurological Exam: Present: alert, oriented, normal mood/affect Skin Exam: Present: normal color, warm/dry ED Progress - Results and Orders Patient's Lab Results:: I have reviewed the patient's lab results. - Vital Signs Patient's Vital Signs:: I have reviewed the patient's vital signs. Vital Signs: Vital Signs 06/17/17 18:54 Temperature 36.4 C L Pulse Rate 64 Respiratory 9 L Rate Blood Pressure 147/80 O2 Sat by Pulse 99 Oximetry - EKG EKG: NSR, other - LVH, no acute changes EKG read: Interp. by me - Progress/Reassessment Chief Complaint: Abdominal Pain Progress Note-Subjective: 06/17/17 19:38 no pain relieve with nitro 06/17/17 19:49 discussed with Ivan ([employer] hospitalist) okay to admit patient for observation for acute pancreatitis Departure Clinical Impression: Pancreatitis Qualifiers: Chronicity: acute Pancreatitis type: alcohol induced Acute pancreatitis complication: unspecified Qualified Code(s): K85.20 - Alcohol induced acute pancreatitis without necrosis or infection - Departure Disposition: [facility] Condition: Good
[2017-06-17 19:30] LABS: Blood Urea Nitrogen 11 mg/dL (6-23); Chloride 101 mmol/L (97-106); Glucose * 110 mg/dL (70-110); Sodium 138 mmol/L (132-142)
[2017-06-17 19:31] LABS: ALT 21 U/L (19-67); AST 17 U/L (0-48); Albumin * 3.4 gm/dl (3.4-5.0); Alkaline Phosphatase * 82 U/L (50-170); Amylase * 123 U/L (25-115); Bilirubin, Total 0.2 mg/dL (0.0-1.1); Ca. Corrected For Albumin 8.8 mg/dL (8.4-10.2); Calcium * 8.6 mg/dL (7.9-10.9); Lipase 1187 U/L (73-393); Total Protein 6.7 gm/dL (6.2-8.2); Troponin I Less than 0.017 ng/ml (0.00-0.10)
[2017-06-17] MEDS ORDERED: HYDROmorphone HCL 1 MG/ML DISP.SYRIN IV ONE (19:38)
[2017-06-17] MEDS ORDERED: HYDROmorphone HCL 1 MG/ML DISP.SYRIN ONE (19:38)
[2017-06-17] MEDS ORDERED: PROMETHAZINE HCL 5 MG in DEXTROSE 5 % IN WATER 50 ML IV PRN ×2 (20:05)
[2017-06-17] MEDS ORDERED: ONDANSETRON HCL/PF 2 MG/ML VIAL IV PRN (20:05)
[2017-06-17] MEDS ORDERED: NORMAL SALINE 1,000 ML IV ONE (20:07)
[2017-06-17] MEDS ORDERED: PANTOPRAZOLE SODIUM 40 MG in NORMAL SALINE 100 ML IV SCH (20:15)
[2017-06-17 20:25] LABS: Urine Appearance Clear; Urine Bilirubin Negative (NEGATIVE); Urine Blood Negative /ul (NEGATIVE); Urine Color Yellow; Urine Ketone Negative (NEGATIVE); Urine Specific Gravity 1.005 SP.GR. (1.005-1.030)
[2017-06-17 20:26] LABS: Urine Nitrite Negative (NEGATIVE); Urine Protein Negative (NEGATIVE); Urine Urobilinogen Normal (NORMAL); Urine pH 6.5 pH (5.0-7.0)
[2017-06-17 20:27] LABS: Urine Bacteria None Seen; Urine RBC None Seen /hpf (0-5); Urine WBC None Seen /hpf (0-5)
[2017-06-17] MEDS ORDERED: NICOTINE 21 MG PATC TD SCH (20:45)
--- NOTE | 2017-06-17 22:42 | HP ---
Chief Complaint - Chief Complaint Date of Service: 06/17/17 Time of Service: 22:11 Chief Complaint: Recurrent Pancreatitis History of Present Illness: 47 years old male adm to the hospital with reports of abdominal pain, nausea and epigastric discomfort. PMH significant for [place], pancreatitis and substance abuse. Per pt was having epigastric pain and came to the ER, he was diagnosed January 2017 with pancreatitis, Since then he has a reoccurring episode each month. He had quit drinking February 2017 and continues to smoke 1 pack cigarette daily. pt stated he was taking antbx a few days ago and took last dose 2-3 days. He have appt with GI service in [place] for EDG and potential ERCP. On previous CT ABD no sludge/gallstones were in gall bladder. In ER alcohol level was negative and pt stated he had no alcohol since february.US ABD: Pancreatitis, no complication identified. Early fatty infiltration of the liver. Plan of care discussed with pt he verbalized understanding and agrees. - Patient's Past Medical History Patient History - Medical: Arthritis, Depression, Other - pancreatitis, smoker, alcohol abuse, fatty liver Patient History - Cardiac/Respiratory: Myocardial Infarction - 2014 Patient History - Cancer: No Hx of Cancer Patient History - Surgical Procedures: Cardiac stent - x2 in 2014, T & A, Other - cervical fusion, Bilateral carpal tunnel Patient History - Other: None - Family History Father Family History - Medical: Family History - Cancer: Throat - Social History Living Situations: spouse Abuse History: Hx of Substance Use Psych History: Hx of Depression Smoking Status: Current every day smoker Cigarettes Packs Per Day: 1 Have you smoked in the past 12 months: Yes Do you dip or chew tobacco: No Patient requests Smoking Cessation Consult: Yes Initiate information on Smoking Cessation: Yes Alcohol Use: none - was a heavy drinker and quit in feb 2017 Drug Use: none - Immunizations Immunizations Up to Date: Yes History of Influenza Vaccine: No Review Of Systems (GEN) - Review of Systems Generalized/Overall Review: Present: No Symptoms Reported EENTM: Present: No Symptoms Reported Respiratory: Present: No Symptoms Reported Cardiac: Present: No Symptoms Reported Abdominal: Present: Nausea, Abdominal Pain, Constipation Genitourinary: Present: No Symptoms Reported Musculoskeletal: Present: No Symptoms Reported Neurological: Present: No Symptoms Reported Skin: Present: No Symptoms Reported Endocrine: Present: No Symptoms Reported Immunizations: IMMUNIZATION HX Immunizations Up to Date Yes History of Influenza Vaccine No Allergies/Adverse Reactions: Allergies Allergy/AdvReac Type Severity Reaction Status Date / Time No Known Allergies Allergy Verified 06/17/17 18:57 Home Medications: HOME MEDICATIONS Albuterol Sulfate [Proair Hfa] 2 puff IH QID PRN 06/17/17 [Last Taken Unknown] Aspirin 81 mg PO DAILY 06/17/17 [Last Taken Unknown] Atorvastatin Calcium [Lipitor] 40 mg PO HS 06/17/17 [Last Taken Unknown] Dicyclomine HCl [Bentyl] 20 mg PO TID 06/17/17 [Last Taken Unknown] Duloxetine HCl [Cymbalta] 60 mg PO DAILY 06/17/17 [Last Taken Unknown] Fluticasone Propionate [Flovent Diskus] 50 mcg IH DAILY 06/17/17 [Last Taken Unknown] Meloxicam [Mobic] 15 mg PO DAILY 06/17/17 [Last Taken Unknown] Metoprolol Succinate [Toprol Xl] 25 mg PO DAILY 06/17/17 [Last Taken Unknown] Nortriptyline HCl 10 mg PO HS 06/17/17 [Last Taken Unknown] Pantoprazole Sodium 20 mg PO DAILY 06/17/17 [Last Taken Unknown] tiZANidine HCL [Tizanidine HCl] 4 mg PO TID 06/17/17 [Last Taken Unknown] Exam - Exam Vital Signs: Vital Signs - Last Taken Temp 36.4 C L 06/17/17 21:20 Pulse 70 06/17/17 21:20 Resp 16 06/17/17 21:20 BP 126/78 06/17/17 21:20 Pulse Ox 96 06/17/17 21:20 Constitutional: Present: Alert, Oriented x3, Cooperative, Well developed, No distress ENT Exam: Present: hearing grossly normal Eye Exam: bilateral eye: normal inspection Neck: Present: full range of motion Back Exam: Present: normal inspection, no CVA tenderness Respiratory: Present: chest non-tender, no respiratory distress, decreased breath sounds, rales Cardiovascular/Chest: Present: normal peripheral pulses, regular rate, rhythm, no chest tenderness, no edema Peripheral Pulses: dorsalis-pedis (R): 3+, dorsalis-pedis (L): 3+ Abdomen: Present: Normal bowel sounds, soft, nontender, nondistended, no rebound tenderness, tender /Rectal: Present: Exam deferred Extremity: Present: normal range of motion Skin Exam: Present: normal color, warm/dry Neurologic: Present: oriented x 3 Appearance: Present: appropriate appearance, appropriate insight Eye contact: Present: cooperative, good eye contact Thoughts: Present: normal thought pattern Diagnostic Studies: Laboratory Results WBC 12.1 K/mm3 (4.0-10.5) H 06/17/17 19:05 RBC 3.90 M/mm3 (4.7-6.0) L 06/17/17 19:05 Hgb 12.7 gm/dL (13.5-18.0) L 06/17/17 19:05 Hct 36.9 % (42.0-52.0) L 06/17/17 19:05 MCV 94.6 fl (78-100) 06/17/17 19:05 MCH 32.6 pg (27-31) H 06/17/17 19:05 MCHC 34.4 g/dl (32-36) 06/17/17 19:05 RDW 14.0 % (11.5-14.0) 06/17/17 19:05 Plt Count 284 K/mm3 (150-450) 06/17/17 19:05 MPV 10.9 fl (6.0-9.5) H 06/17/17 19:05 Immature Gran % (Auto) 0.20 % (0.001-0.429) 06/17/17 19:05 Immature Gran # (Auto) 0.03 K/mm3 (0.000-0.0310) 06/17/17 19:05 Neutrophils % 52.6 % (42-75.0) 06/17/17 19:05 Lymphocytes % 29.8 % (20-51) 06/17/17 19:05 Monocytes % 11.4 % (0.0-9) H 06/17/17 19:05 Eosinophils % 5.3 % (0.0-3.0) H 06/17/17 19:05 Basophils % 0.7 % (0.0-1.0) 06/17/17 19:05 Nucleated RBC % 0.0 k/mm3 (0-1) 06/17/17 19:05 Neutrophils # 6.4 K/mm3 (1.3-6.0) H 06/17/17 19:05 Lymphocytes # 3.6 k/mm3 (1.5-3.5) H 06/17/17 19:05 Monocytes # 1.4 k/mm3 (0.0-1.0) H 06/17/17 19:05 Eosinophils # 0.6 k/mm3 (0.0-0.7) 06/17/17 19:05 Absolute Basophils 0.1 k/mm3 (0.0-0.1) 06/17/17 19:05 Sodium 138 mmol/L (132-142) 06/17/17 19:05 Plasma Sodium 138 mmol/L (130-142) 06/17/17 19:05 Potassium 4.0 mmol/L (3.4-4.6) 06/17/17 19:05 Chloride 101 mmol/L (97-106) 06/17/17 19:05 Carbon Dioxide 30.0 mmol/L (24-32.6) 06/17/17 19:05 Anion Gap 11.0 mmol/L (6.8-13.8) 06/17/17 19:05 BUN 11 mg/dL (6-23) D 06/17/17 19:05 Creatinine 0.92 mg/dL (0.4-1.4) 06/17/17 19:05 Est GFR (Non-Af Amer) 94 mL/min (60-130) D 06/17/17 19:05 BUN/Creatinine Ratio 12.0 (9.0-21.6) 06/17/17 19:05 Random Glucose 110 mg/dL (70-110) 06/17/17 19:05 Calcium 8.6 mg/dL (7.9-10.9) 06/17/17 19:05 Calcium Adj for Albumin 8.8 mg/dL (8.4-10.2) 06/17/17 19:05 Total Bilirubin 0.2 mg/dL (0.0-1.1) 06/17/17 19:05 AST 17 U/L (0-48) 06/17/17 19:05 ALT 21 U/L (19-67) 06/17/17 19:05 Alkaline Phosphatase 82 U/L (50-170) 06/17/17 19:05 Troponin I Less than 0.017 ng/ml (0.00-0.10) 06/17/17 19:05 Total Protein 6.7 gm/dL (6.2-8.2) 06/17/17 19:05 Albumin 3.4 gm/dl (3.4-5.0) 06/17/17 19:05 Amylase 123 U/L (25-115) H 06/17/17 19:05 Lipase 1187 U/L (73-393) H 06/17/17 19:05 Urine Color Yellow 06/17/17 20:15 Urine Appearance Clear 06/17/17 20:15 Urine pH 6.5 pH (5.0-7.0) 06/17/17 20:15 Ur Specific [place] 1.005 SP.GR. (1.005-1.030) 06/17/17 20:15 Urine Protein Negative mg/dL (NEGATIVE) 06/17/17 20:15 Urine Glucose (UA) Negative mg/dL (NEGATIVE) 06/17/17 20:15 Urine Ketones Negative mg/dL (NEGATIVE) 06/17/17 20:15 Urine Blood Negative /ul (NEGATIVE) 06/17/17 20:15 Urine Nitrate Negative (NEGATIVE) 06/17/17 20:15 Urine Bilirubin Negative mg/dl (NEGATIVE) 06/17/17 20:15 Urine Urobilinogen Normal EU/dl (NORMAL) 06/17/17 20:15 Ur Leukocyte Esterase Negative /ul (NEGATIVE) 06/17/17 20:15 Urine RBC None seen /hpf (0-5) 06/17/17 20:15 Urine WBC None seen /hpf (0-5) 06/17/17 20:15 Ur Epithelial Cells None seen /hpf (0-5) 06/17/17 20:15 Urine Bacteria None seen (NONE) 06/17/17 20:15 Urine Culture Comments No culture indicated 06/17/17 20:15 Ethyl Alcohol Less than 3.0 mg/dL (0.0-10.0) 06/17/17 19:05 US ABD: Pancreatitis, no complication identified. Early fatty infiltration of the liver. Assessment/Plan - Narrative Narrative: Acute on chronic Pancreatitis- pt been having recurrent episode since he was diagnosed January 2017 Pt stated he quit drinking alcohol Feb 2017 and ETOH level on adm negative On adm liver enzymes normal, Lipase 1187, Amylase 123, will monitor level in AM Troponin negative and EKG--> NSR Continue with aggressive IVF hydration to prevent pancreatic necrosis Keep NPO may consider pancrealipase pt stated he have follow up appt at [facility] to see GI service for schedule EGD. Depression-stable May resume home medications chronic conditions- stable Anemia Hypertension Code status: Full GI ppx: protonix VTE ppx: Ambulate and SCD. Time 35 minutes, previous records reviewed and case discussed with Dr. Jeffers - Assessment/Plan (1) Acute pancreatitis Problem: Acute Qualifiers: Pancreatitis type: alcohol induced (2) Anemia Problem: Chronic (3) Depression Problem: Chronic (4) EtOH dependence Problem: Chronic (5) HTN (hypertension) Problem: Chronic
[2017-06-18] MEDS ORDERED: SENNOSIDES/DOCUSATE SODIUM 1 TAB TABLET PO SCH (00:15)
[2017-06-18] MEDS: HYDROmorphone HCL 1 MG/ML DISP.SYRIN IV PRN ×2 (00:24→05:07)
[2017-06-18] MEDS: NORMAL SALINE 1,000 ML IV PRN ×2 (01:45→06:59)
[2017-06-18 06:02] LABS: Amylase * 68 U/L (25-115); Hematocrit 35.9 % (42.0-52.0); Hemoglobin 12.4 gm/dL (13.5-18.0); Lipase 365 U/L (73-393); Mean Cell Volume 95.2 fl (78-100); Mean Corpuscular Hemoglobin 32.9 pg (27-31); Mean Corpuscular Hgb Conc 34.5 g/dl (32-36); Mean Platelet Volume 11.3 fl (6.0-9.5); Neutrophil # 5.6 K/mm3 (1.3-6.0); Platelet Count 270 K/mm3 (150-450); Red Blood Count 3.77 M/mm3 (4.7-6.0); White Blood Count 11.4 K/mm3 (4.0-10.5)
[2017-06-18 06:54] VITALS: BP 120/75
--- NOTE | 2017-06-18 09:24 | DS ---
(1) Acute on chronic pancreatitis Problem: Acute Description of Stay: Pt. admitted for acute on chronic pancreatitis. He has had multiple appts. with GI at [facility] and [facility] for w/u of this. Initial pancreatitis was thought to be due to EtoH consumption/abuse, but he states he's been dry since February, but continues to have attacks. Denies any new supplements or OTC meds, but did just finish tx for H. pylori of the stomach a few days prior to admission. He states that his pain is better this am and he is tolerating PO clear liquids, with amylase and lipase normalizing and pain with deep palpation (most of it LLQ , not MEDHAT), but without rebound and abdomen was soft with NABS this am. He will be discharged home, to resume home meds. No pain meds Rx'd by me. Recommend just clear liquid diet and f/u with PPC within week and GI drs per them. Would recommend PCP to review meds and possibly change them as sometimes PPI's and other meds can cause pancreatitis. Procedures Performed: none Discharge Disposition: Home self care Disposition: Home self-care Condition: Good Discharge Activity: Activity as tolerated Discharge Diet: Clear Liquids - x 24-48hrs then advance diet as tolerated. Referrals: Yajaira Todd ARNP [Primary Care Provider] - One Week Complete Home Medications List: Complete Home Medication List: Albuterol Sulfate [Proair Hfa] 2 puff IH QID PRN 06/17/17 Aspirin 81 mg PO DAILY 06/17/17 Atorvastatin Calcium [Lipitor] 40 mg PO HS 06/17/17 Dicyclomine HCl [Bentyl] 20 mg PO TID 06/17/17 Duloxetine HCl [Cymbalta] 60 mg PO DAILY 06/17/17 Fluticasone Propionate [Flovent Diskus] 50 mcg IH DAILY 06/17/17 Meloxicam [Mobic] 15 mg PO DAILY 06/17/17 Metoprolol Succinate [Toprol Xl] 25 mg PO DAILY 06/17/17 Nortriptyline HCl 10 mg PO HS 06/17/17 Pantoprazole Sodium 20 mg PO DAILY 06/17/17 tiZANidine HCL [Tizanidine HCl] 4 mg PO TID 06/17/17
== END 2017-06-18 11:10 | disposition home or self-care (01) ==
LOC: ER 18:48 → MS 19:54
PROVIDERS: ADMIT Nurse Practitioner; ATTEND Family Medicine
DX: K85.90 Acute pancreatitis without necrosis or infection, unspecified (principal); D64.9 Anemia, unspecified; K86.1 Other chronic pancreatitis; F32.9 Major depressive disorder, single episode, unspecified; I10 Essential (primary) hypertension; F17.210 Nicotine dependence, cigarettes, uncomplicated
CPT/HCPCS: 36415; 80053; 81001; 82150; 83690; 84484; 85025; 93005; 96374; 96375; 99284; G0378; G0481

== ENCOUNTER 2018-12-29 21:05 | Inpatient (IN) ==
[2018-12-29] MEDS ORDERED: NORMAL SALINE 1,000 ML IV ONE ×2 (21:26→22:15)
[2018-12-29] MEDS ORDERED: ONDANSETRON HCL/PF 2 MG/ML VIAL IV ONE (21:26)
[2018-12-29] MEDS ORDERED: HYDROmorphone HCL 1 MG/ML DISP.SYRIN IV ONE ×2 (21:26→22:15)
--- NOTE | 2018-12-29 21:30 | ERNOTE ---
Abdominal HPI - Narrative Date of Service: 12/29/18 - General Chief Complaint: Abdominal Pain Time Seen by Provider: 12/29/18 21:19 Source: patient - Immun/Allergies/Home Medications Immunizatons: IMMUNIZATION HX Immunizations Up to Date Yes History of Influenza Vaccine No Hx Pneumococcal Vaccination No Allergies/Adverse Reactions: Allergies No Known Allergies Allergy (Verified 12/29/18 21:11) Home Medications: HOME MEDICATIONS Aspirin 81 mg PO DAILY 06/17/17 [Last Taken Unknown] Atorvastatin Calcium [Lipitor] 40 mg PO HS 06/17/17 [Last Taken Unknown] Duloxetine HCl [Cymbalta] 60 mg PO DAILY 06/17/17 [Last Taken Unknown] Metoprolol Succinate [Toprol Xl] 25 mg PO DAILY 06/17/17 [Last Taken Unknown] Pantoprazole Sodium 20 mg PO DAILY 06/17/17 [Last Taken Unknown] Morphine Sulfate 15 mg PO BID PRN 02/02/18 [Last Taken Unknown] Nortriptyline HCl [Pamelor] 25 mg PO HS 02/02/18 [Last Taken Unknown] Ranitidine HCl [Zantac] 300 mg PO HS 02/02/18 [Last Taken Unknown] Albuterol Sulfate [Proair Respiclick] 180 mcg INHALATION PRN PRN 12/29/18 [Last Taken Unknown] Baclofen 10 mg PO QID PRN 12/29/18 [Last Taken Unknown] - History of Present Illness Narrative: This is a 48-year-old gentleman with a history of acute pancreatitis, likely alcohol induced, who comes to the emergency department with 12 hours of epigastric abdominal pain. The pain is associated with nausea and dry heaving but no further vomiting. He has not actually vomited. He says his stomach is empty because he has not felt like eating. Drinking causes pain, even just water. Eating definitely causes pain. Moving around or walking causes pain laying with his legs extended causes pain. If he lays with his knees bent and the hips flexed he feels a bit better. No fever. No blood in his stool. No chest pain or shortness of breath. Says his symptoms feel just like his previous pancreatitis. The patient has not drank today but admits he has had "moderation "alcohol over the last couple of days. The patient has a history of neck surgery and takes MS Contin 15 mg twice a day for chronic pain. Review of Systems - Review of Systems Constitutional: Present: no symptoms reported EYE: Present: no symptoms reported ENT: Present: no symptoms reported Respiratory: Present: no symptoms reported Cardiology: Present: no symptoms reported Gastrointestinal/Abdominal: Present: See HPI, nausea, diarrhea - Once yesterday, abdominal pain, eating less - Due to pain, drinking less - Due to pain. Absent: vomiting, constipation Genitourinary: Present: no symptoms reported Musculoskeletal: Present: no symptoms reported Skin: Present: no symptoms reported Neurological: Present: no symptoms reported Endocrine: Present: no symptoms reported Hematologic/Lymphatic: Present: no symptoms reported Psych: Present: no symptoms reported All Other Systems: All systems neg except as marked Medical History (Updated 12/29/18 @ 22:16 by Mukesh Michael MD) Hx of pancreatitis hx of intracranial hemorrhage repair Chronic pain Evacuation of intracranial bleed Myocardial infarction Surgical History: Surgical History (Updated 12/29/18 @ 21:12 by Traci Mendez RN) Hx laparoscopic cholecystectomy Hx of heart artery stent Family History: Family History (Updated 12/29/18 @ 21:12 by Traci Mendez RN) Other No pertinent family history Social History: Preferred Language Occitan Do you have any lutheran or No cultural preference? Smoking Status Current every day smoker Abuse History Hx of Substance Use Psych History Hx of Depression No Social History Section defined Physical Exam - Physical Exam General Appearance: Present: wd/wn, alert, no apparent distress, other - Laying still in bed. Flexed at the hip and knees bent Head Exam: Present: normal inspection, no evidence of injury Eye Exam: Normal inspection: bilateral, PERRL: bilateral, EOMI: bilateral Ears, Nose, Throat: Present: normal ENT inspection, normal pharynx Neck: Present: normal inspection, nontender Respiratory: Present: no respiratory distress, normal breath sounds, lungs clear Cardiovascular/Chest: Present: regular rate, rhythm, no murmur Gastrointestinal/Abdominal: Present: other - Patient is extremely ticklish making a comprehensive abdominal exam difficult. Does not seem to have any tenderness to palpation of the lower quadrants. Significant tenderness to palpation in the subxiphoid area. Equivocal rebound. Voluntary guarding. Abdomen is not distended. No fluid wave detectable Back Exam: Present: normal inspection, normal range of motion Extremity Exam: Present: normal inspection, non-tender, normal range of motion, no edema Neurological Exam: Present: alert, oriented, normal mood/affect, no motor/sensory deficits Skin Exam: Present: skin rash, other - To the left chest wall around the inferior costal margin there are multiple confluent lesions which have a characteristic appearance of shingles. Does not cross the midline. Would correspond to 1 or 2 dermatomes. Cannot say with certainty that this is shingles but we are putting on contact precautions Lymphatic Exam: Present: no adenopathy Progress - Results and Orders Patient's Lab Results:: I have reviewed the patient's lab results. - Vital Signs Patient's Vital Signs:: I have reviewed the patient's vital signs. Vital Signs: Vital Signs 12/29/18 21:08 12/29/18 21:22 Temperature 36.9 C Pulse Rate 62 Respiratory Rate 16 15 Blood Pressure 152/97 H 147/74 H O2 Sat by Pulse Oximetry 100 - X-Ray X-Ray #1 X-Ray: abdomen Interpretation: Interp. by me X-ray Comments: Nonspecific bowel gas pattern slight paucity of bowel gas in the small bowel - Progress/Reassessment Chief Complaint: Abdominal Pain Progress:: Improved Progress Note-Subjective: 12/29/18 22:16 Pain is a bit better with the pain meds. Will admit to Dr. Sepulveda. Will order a CAT scan at his request Departure Clinical Impression: Pancreatitis Qualifiers: Chronicity: acute Pancreatitis type: alcohol induced Acute pancreatitis complication: unspecified Qualified Code(s): K85.20 - Alcohol induced acute pancreatitis without necrosis or infection Shingles Qualifiers: Herpes zoster complications: without complications Qualified Code(s): B02.9 - Zoster without complications - Departure Disposition: Still a patient Condition: Fair
[2018-12-29 21:49] LABS: Hematocrit 36.2 % (42.0-52.0); Hemoglobin 12.6 gm/dL (13.5-18.0); Mean Cell Volume 97.1 fl (78-100); Mean Corpuscular Hemoglobin 33.8 pg (27-31); Mean Corpuscular Hgb Conc 34.8 g/dl (32-36); Mean Platelet Volume 11.2 fl (8-11.3); Neutrophil # 9.5 K/mm3 (1.3-6.0); Neutrophil % 67.9 % (42-75.0); Platelet Count 199 K/mm3 (150-450); Red Blood Count 3.73 M/mm3 (4.7-6.0); Red Cell Distribution Width 15.8 % (11.5-14.0)
[2018-12-29 21:54] LABS: Total Cells Counted 100
[2018-12-29 22:04] LABS: Immature Granulocyte 2 (0-1); Lymphocyte 14 % (20-51); Monocyte 9 % (0-9); Neutrophil 75 % (42-75); Neutrophil # 10.5 K/mm3 (1.3-6.0)
[2018-12-29 22:05] LABS: Hypochromia 2+; Platelet Estimate Normal (NORMAL); Target Cells 1+
[2018-12-29 22:06] LABS: Albumin * 3.2 gm/dl (3.4-5.0); Anion Gap 14.1 mmol/L (6.8-13.8); BUN/Creatinine Ratio 10.3 (9.0-21.6); Bilirubin, Total 0.9 mg/dL (0.0-1.1); Ca. Corrected For Albumin 8.4 mg/dL (8.4-10.2); Calcium * 8.1 mg/dL (7.9-10.9); Carbon Dioxide 25.9 mmol/L (24-32.6); Total Protein 6.3 gm/dL (6.2-8.2)
[2018-12-29] MEDS ORDERED: ONDANSETRON HCL/PF 2 MG/ML VIAL IV PRN (22:17)
[2018-12-29] MEDS ORDERED: DIATRIZOATE MEGLUMINE, SODIUM 30 ML BTL PO ONE (22:28)
[2018-12-29] MEDS: NORMAL SALINE 1,000 ML IV ONE (22:52)
[2018-12-30] MEDS: NORMAL SALINE 1,000 ML IV ONE (00:17)
[2018-12-30] MEDS: HYDROmorphone HCL 1 MG/ML DISP.SYRIN IV PRN ×5 (00:59→19:05)
[2018-12-30] MEDS ORDERED: HYDROmorphone HCL 1 MG/ML DISP.SYRIN IV PRN (07:10)
[2018-12-30] MEDS ORDERED: ONDANSETRON HCL/PF 2 MG/ML VIAL IV PRN (07:11)
[2018-12-30] MEDS ORDERED: ALBUTEROL SULFATE 2.5 MG/0.5 ML VIAL.NEB IH PRN (08:14)
[2018-12-30] MEDS ORDERED: BACLOFEN 10 MG TABLET PO PRN (08:14)
--- NOTE | 2018-12-30 08:14 | HP ---
Chief Complaint - Chief Complaint Date of Service: 12/30/18 Time of Service: 07:39 Chief Complaint: abdominal pain History of Present Illness: Clari Mayorga is a 48-year-old white male patient of [facility] in [place] who was admitted on 12/29/2018 for abdominal pain, epigastric in location. The patient was in his usual self, until he woke up on the day of admission and developed sharp epigastric abdominal pain, 10+/10 associated with dry heaves and nausea and diaphoresis. it was aggravated by solid or liquid oral intake. It felt like his pancreatitis attack in the past. The patient tried to tough it out but as the day progressed the patient's pain was intolerable so he went to our emergency room. He had an elevated white blood cell count, elevated lipase of 1850, elevated AST/ALT/alkaline phosphatase. The patient's last alcohol intake was 1 day PIG [employer]. He says he drinks about 6 bottles of beer a day, down from a case or more than a case in the past. His last pancreatitis attack was about 1- 1/2 years ago. He does not remember his doctors telling him about gallbladder stones in the past although he has had a cholecystectomy already. He denies any fever or chills, vomiting, diarrhea, constipation, hematemesis, hematochezia, melena. 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 Smoking Status Current every day smoker Have you smoked in the past 12 Yes months Abuse History Hx of Substance Use Psych History Hx of Depression No Social History Section defined Review Of Systems (GEN) - Review of Systems Generalized/Overall Review: Absent: Chills EENTM: Absent: Blurred Vision Respiratory: Absent: Cough, Shortness of Breath, Orthopnea Cardiac: Absent: Chest Pain, Edema, Palpitations Abdominal: Present: Nausea, Abdominal Pain. Absent: Vomiting, Hematemesis, Constipation, Diarrhea - diarrhea after CTS, Melena Genitourinary: Absent: Urgency, Frequency Musculoskeletal: Present: Joint Pain, Neck Pain Neurological: Absent: Headache Skin: Present: Rash - left neck area Endocrine: Absent: Intolerance to Cold, Intolerance to Heat Misc: All systems neg except as marked Immunizations: IMMUNIZATION HX Immunizations Up to Date Yes History of Influenza Vaccine No Hx Pneumococcal Vaccination No Allergies/Adverse Reactions: Allergies Allergy/AdvReac Type Severity Reaction Status Date / Time No Known Allergies Allergy Verified 12/29/18 21:11 Home Medications: HOME MEDICATIONS Aspirin 81 mg PO DAILY 06/17/17 [Last Taken Unknown] Atorvastatin Calcium [Lipitor] 40 mg PO HS 06/17/17 [Last Taken Unknown] Duloxetine HCl [Cymbalta] 60 mg PO DAILY 06/17/17 [Last Taken Unknown] Metoprolol Succinate [Toprol Xl] 25 mg PO DAILY 06/17/17 [Last Taken Unknown] Pantoprazole Sodium 20 mg PO DAILY 06/17/17 [Last Taken Unknown] Morphine Sulfate 15 mg PO BID PRN 02/02/18 [Last Taken Unknown] Nortriptyline HCl [Pamelor] 25 mg PO HS 02/02/18 [Last Taken Unknown] Ranitidine HCl [Zantac] 300 mg PO HS 02/02/18 [Last Taken Unknown] Albuterol Sulfate [Proair Respiclick] 180 mcg INHALATION PRN PRN 12/29/18 [Last Taken Unknown] Baclofen 10 mg PO QID PRN 12/29/18 [Last Taken Unknown] Exam - Exam Vital Signs: Vital Signs - Last Taken Temp 36.7 C 12/30/18 06:13 Pulse 73 12/30/18 06:13 Resp 8 L 12/30/18 06:13 BP 115/73 12/30/18 06:13 Pulse Ox 95 12/30/18 06:13 Constitutional: Present: Alert, Oriented x3, Cooperative ENT Exam: Present: hearing grossly normal Eye Exam: bilateral eye: normal inspection, PERRL, EOMI Neck: Present: supple Respiratory: Present: normal breath sounds, No rales, No wheezing Cardiovascular/Chest: Present: regular rate, rhythm, no JVD, no murmur Abdomen: Present: Normal bowel sounds, soft, nondistended - epigastric area, tender Extremity: Present: no pedal edema, no calf tenderness Diagnostic Studies: Abnormal Lab Results 12/29/18 12/29/18 Range/Units 21:38 21:38 WBC 14.0 H (4.0-10.5) K/mm3 RBC 3.73 L (4.7-6.0) M/mm3 Hgb 12.6 L (13.5-18.0) gm/dL Hct 36.2 L (42.0-52.0) % MCH 33.8 H (27-31) pg RDW 15.8 H (11.5-14.0) % Immature Gran # (Auto) 0.05 H (0.000-0.0310) K/mm3 Lymphocytes % 16.4 L (20-51) % Lymphocytes % (Manual) 14 L (20-51) % Monocytes % 13.4 H (0.0-9) % Immature Granulocytes 2 H (0-1) Neutrophils # 9.5 H (1.3-6.0) K/mm3 Neutrophils # (Manual) 10.5 H (1.3-6.0) K/mm3 Monocytes # 1.9 H (0.0-1.0) k/mm3 Monocytes # (Manual) 1.3 H (0.0-1.0) k/mm3 Anion Gap 14.1 H (6.8-13.8) mmol/L AST 149 H (0-48) U/L ALT 169 H (19-67) U/L Alkaline Phosphatase 423 H (50-170) U/L Albumin 3.2 L (3.4-5.0) gm/dl Lipase 1838 H (73-393) U/L Laboratory Results WBC 14.0 K/mm3 (4.0-10.5) H 12/29/18 21:38 RBC 3.73 M/mm3 (4.7-6.0) L 12/29/18 21:38 Hgb 12.6 gm/dL (13.5-18.0) L 12/29/18 21:38 Hct 36.2 % (42.0-52.0) L 12/29/18 21:38 MCV 97.1 fl (78-100) 12/29/18 21:38 MCH 33.8 pg (27-31) H 12/29/18 21:38 MCHC 34.8 g/dl (32-36) 12/29/18 21:38 RDW 15.8 % (11.5-14.0) H 12/29/18 21:38 Plt Count 199 K/mm3 (150-450) 12/29/18 21:38 MPV 11.2 fl (8-11.3) 12/29/18 21:38 Immature Gran % (Auto) 0.40 % (0.001-0.429) 12/29/18 21:38 Immature Gran # (Auto) 0.05 K/mm3 (0.000-0.0310) H 12/29/18 21:38 67.9 % (42-75.0) 12/29/18 21:38 75 % (42-75) 12/29/18 21:38 16.4 % (20-51) L 12/29/18 21:38 14 % (20-51) L 12/29/18 21:38 13.4 % (0.0-9) H 12/29/18 21:38 9 % (0-9) 12/29/18 21:38 1.3 % (0.0-3.0) 12/29/18 21:38 0.6 % (0.0-1.0) 12/29/18 21:38 Nucleated RBC % 0.0 k/mm3 (0-1) 12/29/18 21:38 2 (0-1) H 12/29/18 21:38 9.5 K/mm3 (1.3-6.0) H 12/29/18 21:38 10.5 K/mm3 (1.3-6.0) H 12/29/18 21:38 2.29 k/mm3 (1.5-3.5) 12/29/18 21:38 2.0 k/mm3 (1.5-3.5) 12/29/18 21:38 1.9 k/mm3 (0.0-1.0) H 12/29/18 21:38 1.3 k/mm3 (0.0-1.0) H 12/29/18 21:38 0.2 k/mm3 (0.0-0.7) 12/29/18 21:38 Absolute Basophils 0.1 k/mm3 (0.0-0.1) 12/29/18 21:38 Normal (NORMAL) 12/29/18 21:38 2+ 12/29/18 21:38 1+ 12/29/18 21:38 Sodium 139 mmol/L (132-142) 12/29/18 21:38 139 mmol/L (130-142) 12/29/18 21:38 Potassium 4.0 mmol/L (3.4-4.6) 12/29/18 21:38 Chloride 103 mmol/L (97-106) 12/29/18 21:38 Carbon Dioxide 25.9 mmol/L (24-32.6) 12/29/18 21:38 14.1 mmol/L (6.8-13.8) H 12/29/18 21:38 BUN 8 mg/dL (6-23) 12/29/18 21:38 0.78 mg/dL (0.4-1.4) 12/29/18 21:38 Est GFR (Non-Af Amer) 113 mL/min (60-130) D 12/29/18 21:38 10.3 (9.0-21.6) 12/29/18 21:38 79 mg/dL (70-110) 12/29/18 21:38 Calcium 8.1 mg/dL (7.9-10.9) 12/29/18 21:38 Calcium Adj for Albumin 8.4 mg/dL (8.4-10.2) 12/29/18 21:38 0.9 mg/dL (0.0-1.1) 12/29/18 21:38 AST 149 U/L (0-48) H 12/29/18 21:38 ALT 169 U/L (19-67) H 12/29/18 21:38 423 U/L (50-170) H 12/29/18 21:38 6.3 gm/dL (6.2-8.2) 12/29/18 21:38 3.2 gm/dl (3.4-5.0) L 12/29/18 21:38 1838 U/L (73-393) H 12/29/18 21:38 Assessment/Plan - Narrative Narrative: Will continue some of his home medications. He has been worked up before in the [facility] gastroenterology department before. will get medical records. - Assessment/Plan (1) Acute pancreatitis Assessment: will continue with pain control, IVF, clear liquids for now. will repeat labs. will follow up official reading of CTS. Problem: Acute (2) Rash Assessment: 4 days old, not painful but itchy, no blister like lesions - unlikely shingles. will start lotrisone. Problem: Acute (3) EtOH dependence Problem: Chronic (4) HTN (hypertension) Problem: Chronic (5) Depression Problem: Chronic
[2018-12-30 08:53] LABS: Hematocrit 34.2 % (42.0-52.0); Hemoglobin 11.8 gm/dL (13.5-18.0); Mean Cell Volume 99.1 fl (78-100); Mean Corpuscular Hemoglobin 34.2 pg (27-31); Mean Corpuscular Hgb Conc 34.5 g/dl (32-36); Mean Platelet Volume 11.3 fl (8-11.3); Neutrophil # 7.4 K/mm3 (1.3-6.0); Platelet Count 191 K/mm3 (150-450); Red Blood Count 3.45 M/mm3 (4.7-6.0); Red Cell Distribution Width 16.2 % (11.5-14.0); White Blood Count 12.5 K/mm3 (4.0-10.5)
[2018-12-30] MEDS: POTASSIUM CHLORIDE 10 MEQ in NORMAL SALINE 1,000 ML IV SCH ×2 (09:13→17:23)
[2018-12-30 09:14] LABS: Albumin * 2.6 gm/dl (3.4-5.0); Anion Gap 10.7 mmol/L (6.8-13.8); Bilirubin, Total 0.7 mg/dL (0.0-1.1); Calcium * 7.2 mg/dL (7.9-10.9); Carbon Dioxide 25.7 mmol/L (24-32.6); Potassium 3.4 mmol/L (3.4-4.6); Total Protein 5.4 gm/dL (6.2-8.2)
[2018-12-30] MEDS: PANTOPRAZOLE SODIUM 40 MG in NORMAL SALINE 100 ML IV SCH (09:16)
[2018-12-30] MEDS: METOPROLOL SUCCINATE 25 MG TABLET.SA PO SCH (09:40)
[2018-12-30] MEDS: ASPIRIN 81 MG TAB.CHEW PO SCH (09:40)
[2018-12-30] MEDS: DULoxetine HCL 30 MG CAPSULE.SA PO SCH (09:40)
[2018-12-30] MEDS: CLOTRIMAZOLE/BETAMET DIPROP 15 APPL TUBE TP SCH ×2 (09:41→20:43)
[2018-12-30 10:07] LABS: Folate 17.3 ng/mL (8.6-58.9)
[2018-12-30] MEDS: NORTRIPTYLINE HCL 25 MG CAPSULE PO SCH (20:43)
[2018-12-31] MEDS: HYDROmorphone HCL 1 MG/ML DISP.SYRIN IV PRN ×5 (00:37→20:36)
[2018-12-31] MEDS: POTASSIUM CHLORIDE 10 MEQ in NORMAL SALINE 1,000 ML IV SCH ×2 (01:27→10:10)
[2018-12-31] MEDS: PANTOPRAZOLE SODIUM 40 MG in NORMAL SALINE 100 ML IV SCH (07:29)
[2018-12-31 07:54] LABS: Albumin * 2.2 gm/dl (3.4-5.0); Anion Gap 11.4 mmol/L (6.8-13.8); BUN/Creatinine Ratio 5.4 (9.0-21.6); Bilirubin, Total 0.7 mg/dL (0.0-1.1); Ca. Corrected For Albumin 8.5 mg/dL (8.4-10.2); Calcium * 7.4 mg/dL (7.9-10.9); Carbon Dioxide 24.9 mmol/L (24-32.6); Potassium 3.3 mmol/L (3.4-4.6); Total Protein 4.6 gm/dL (6.2-8.2)
--- NOTE | 2018-12-31 08:49 | PN ---
Subjective - Date and Time Seen Date: 12/31/18 Time: 08:46 Subjective Narrative: Patient says he woke up with abdominal pain again. Lipase is up again to 1800+. WBC is slightly down. Objective - Review of Systems Generalized/Overall Review: Denies: Chills, Fever EENTM: Denies: Blurred Vision Respiratory: Denies: Cough, Shortness of Breath, Orthopnea Cardiac: Denies: Chest Pain, Edema, Palpitations Abdominal: Reports: Nausea, Abdominal Pain. Denies: Vomiting, Hematemesis Genitourinary Symptoms: Denies: Urgency, Frequency Musculoskeletal Complaints: Reports: Joint Pain. Denies: Back Pain Neurological: Denies: Headache Skin: Reports: Rash. Denies: Lesions Endocrine: Denies: Intolerance to Cold, Intolerance to Heat Misc: All systems neg except as marked - Vitals Vitals: Last Vital Signs Temp 36.9 C 12/31/18 08:21 Pulse 70 12/31/18 08:21 Resp 12 12/31/18 08:21 BP 120/71 12/31/18 08:21 Pulse Ox 97 12/31/18 08:21 - Abnormal Lab Findings Abnormal Lab Findings: Abnormal Lab Results 12/30/18 12/30/18 12/31/18 Range/Units 08:48 08:48 07:18 WBC 12.5 H (4.0-10.5) K/mm3 RBC 3.45 L (4.7-6.0) M/mm3 Hgb 11.8 L (13.5-18.0) gm/dL Hct 34.2 L (42.0-52.0) % MCH 34.2 H (27-31) pg RDW 16.2 H (11.5-14.0) % Monocytes % 12.8 H (0.0-9) % Eosinophils % 3.4 H (0.0-3.0) % Neutrophils # 7.4 H (1.3-6.0) K/mm3 Monocytes # 1.6 H (0.0-1.0) k/mm3 Potassium 3.3 L (3.4-4.6) mmol/L Chloride 107 H 107 H (97-106) mmol/L BUN 3 L (6-23) mg/dL Est GFR (Non-Af Amer) 166 H D (60-130) mL/min BUN/Creatinine Ratio 8.0 L 5.4 L (9.0-21.6) Calcium 7.2 L 7.4 L (7.9-10.9) mg/dL Calcium Adj for Albumin 8.0 L (8.4-10.2) mg/dL AST 124 H 59 H (0-48) U/L ALT 133 H 87 H (19-67) U/L Alkaline Phosphatase 369 H 297 H (50-170) U/L Total Protein 5.4 L 4.6 L (6.2-8.2) gm/dL Albumin 2.6 L 2.2 L (3.4-5.0) gm/dl Amylase 161 H 143 H (25-115) U/L Lipase 1003 H 1848 H (73-393) U/L - Exam Constitutional: Present: Alert, Oriented x3, Cooperative ENT Exam: Present: hearing grossly normal Neck: Present: supple Respiratory: Present: normal breath sounds, No rales, No wheezing Abdomen: Present: Normal bowel sounds, soft, nondistended, tender - slightly tender epigastric area Extremity: Present: no pedal edema, no calf tenderness Assessment/Plan Plan Narrative: AST/ALT/ALK Phos improving. WBC is down. Lipase up again. Calcium is normal.will keep him strict NPO and follow up with medical records form [facility]. - Problems/Diagnosis (1) Acute pancreatitis Problem: Acute Narrative: will d/c clear liquids and keep him on strict NPO for now. (2) Rash Problem: Acute Narrative: continue with lotrisone (3) EtOH dependence Problem: Chronic (4) HTN (hypertension) Problem: Chronic (5) Depression Problem: Chronic
[2018-12-31] MEDS: DULoxetine HCL 30 MG CAPSULE.SA PO SCH (09:44)
[2018-12-31] MEDS: CLOTRIMAZOLE/BETAMET DIPROP 15 APPL TUBE TP SCH ×2 (09:45→20:35)
[2018-12-31] MEDS: ASPIRIN 81 MG TAB.CHEW PO SCH (09:45)
[2018-12-31] MEDS: METOPROLOL SUCCINATE 25 MG TABLET.SA PO SCH (09:45)
[2018-12-31] MEDS: POTASSIUM CHLORIDE 20 MEQ in DEXTROSE 5%-NORMAL SALINE 990 ML IV SCH ×2 (09:46→19:46)
[2018-12-31] MEDS: NORTRIPTYLINE HCL 25 MG CAPSULE PO SCH (20:36)
[2019-01-01] MEDS: HYDROmorphone HCL 1 MG/ML DISP.SYRIN IV PRN ×6 (00:47→21:36)
[2019-01-01] MEDS: POTASSIUM CHLORIDE 20 MEQ in DEXTROSE 5%-NORMAL SALINE 990 ML IV SCH ×2 (07:47→16:59)
[2019-01-01] MEDS: PANTOPRAZOLE SODIUM 40 MG in NORMAL SALINE 100 ML IV SCH (07:48)
[2019-01-01 08:01] LABS: Hematocrit 30.3 % (42.0-52.0); Hemoglobin 10.4 gm/dL (13.5-18.0); Mean Cell Volume 98.7 fl (78-100); Mean Corpuscular Hemoglobin 33.9 pg (27-31); Mean Corpuscular Hgb Conc 34.3 g/dl (32-36); Mean Platelet Volume 11.4 fl (8-11.3); Neutrophil % 54.8 % (42-75.0); Platelet Count 166 K/mm3 (150-450); Red Blood Count 3.07 M/mm3 (4.7-6.0); Red Cell Distribution Width 15.7 % (11.5-14.0); White Blood Count 9.1 K/mm3 (4.0-10.5)
[2019-01-01 08:13] LABS: Anion Gap 8.3 mmol/L (6.8-13.8); BUN/Creatinine Ratio 3.8 (9.0-21.6); Bilirubin, Total 0.4 mg/dL (0.0-1.1); Ca. Corrected For Albumin 9.1 mg/dL (8.4-10.2); Calcium * 7.8 mg/dL (7.9-10.9); Carbon Dioxide 29.2 mmol/L (24-32.6); Potassium 3.5 mmol/L (3.4-4.6); Total Protein 4.4 gm/dL (6.2-8.2)
--- NOTE | 2019-01-01 08:52 | PN ---
Subjective - Date and Time Seen Date: 01/01/19 Time: 08:42 Subjective Narrative: he has abdominal pain 12/30. patient says it usually takes about 3-4 days for his flare ups to start getting better. we discussed about TPN on the background of his malnutrition. he rather not start that yet. medical records reviewed- acute on chronic pancreatitis, h/o pnacreatic pseudocyst, h/o of cerebellar hemorrhage, CAD s/p stenting. leukocytosis resolved. lipase improved to 1300+ from 1800+. Objective - Review of Systems Generalized/Overall Review: Denies: Chills, Fever EENTM: Denies: Blurred Vision Respiratory: Denies: Cough, Shortness of Breath Cardiac: Denies: Chest Pain, Edema Abdominal: Reports: Nausea, Abdominal Pain. Denies: Vomiting Musculoskeletal Complaints: Reports: Joint Pain Neurological: Denies: Headache Skin: Denies: Lesions, Rash Endocrine: Denies: Intolerance to Cold Misc: All systems neg except as marked - Vitals Vitals: Last Vital Signs Temp 36.7 C 01/01/19 06:42 Pulse 61 01/01/19 06:42 Resp 9 L 01/01/19 06:42 BP 120/62 01/01/19 06:42 Pulse Ox 95 01/01/19 06:42 - Abnormal Lab Findings Abnormal Lab Findings: Abnormal Lab Results 01/01/19 01/01/19 Range/Units 07:00 07:00 RBC 3.07 L (4.7-6.0) M/mm3 Hgb 10.4 L (13.5-18.0) gm/dL Hct 30.3 L (42.0-52.0) % MCH 33.9 H (27-31) pg RDW 15.7 H (11.5-14.0) % MPV 11.4 H (8-11.3) fl Monocytes % 11.0 H (0.0-9) % Eosinophils % 6.2 H (0.0-3.0) % Chloride 108 H (97-106) mmol/L BUN 2 L (6-23) mg/dL Est GFR (Non-Af Amer) 180 H (60-130) mL/min BUN/Creatinine Ratio 3.8 L (9.0-21.6) Calcium 7.8 L (7.9-10.9) mg/dL AST 51 H (0-48) U/L ALT 74 H (19-67) U/L Alkaline Phosphatase 264 H (50-170) U/L Total Protein 4.4 L (6.2-8.2) gm/dL Albumin 2.0 L (3.4-5.0) gm/dl Amylase 129 H (25-115) U/L Lipase 1358 H (73-393) U/L - Exam Constitutional: Present: Alert, Oriented x3, Cooperative ENT Exam: Present: hearing grossly normal Neck: Present: supple Respiratory: Present: normal breath sounds, No rales, No wheezing Cardiovascular/Chest: Present: regular rate, rhythm, no JVD, no murmur Abdomen: Present: Normal bowel sounds, soft, nondistended, tender Extremity: Present: no pedal edema, no calf tenderness Assessment/Plan - Problems/Diagnosis (1) Acute pancreatitis Problem: Acute Narrative: acute on chronic pancreatitis. still with abdominal pain. he usually gets better in 3-4 days- NPO 1st day, ice chips 2nd day , clear liquids on 3rd day.... will still keep him NPO and start ice chips only today. he refuses TPN. (2) Rash Problem: Acute Narrative: improved (3) EtOH dependence Problem: Chronic (4) HTN (hypertension) Problem: Chronic (5) Depression Problem: Chronic (6) CAD (coronary artery disease) Problem: Chronic Qualifiers: Coronary Disease-Associated Artery/Lesion type: [place] artery [place] vs. transplanted heart: [place] heart Associated angina: without angina Qualified Code(s): I25.10 - Atherosclerotic heart disease of [place] coronary artery without angina pectoris (7) History of cerebellar hemorrhage Problem: Chronic
[2019-01-01] MEDS: METOPROLOL SUCCINATE 25 MG TABLET.SA PO SCH (09:02)
[2019-01-01] MEDS: ASPIRIN 81 MG TAB.CHEW PO SCH (09:02)
[2019-01-01] MEDS: CLOTRIMAZOLE/BETAMET DIPROP 15 APPL TUBE TP SCH ×2 (09:02→20:40)
[2019-01-01] MEDS: DULoxetine HCL 30 MG CAPSULE.SA PO SCH (09:02)
[2019-01-01] MEDS: NORTRIPTYLINE HCL 25 MG CAPSULE PO SCH (20:40)
[2019-01-02] MEDS: HYDROmorphone HCL 1 MG/ML DISP.SYRIN IV PRN ×3 (01:47→21:17)
[2019-01-02] MEDS: POTASSIUM CHLORIDE 20 MEQ in DEXTROSE 5%-NORMAL SALINE 990 ML IV SCH ×3 (03:07→20:30)
[2019-01-02 06:10] LABS: Albumin * 2.1 gm/dl (3.4-5.0); BUN/Creatinine Ratio 3.8 (9.0-21.6); Bilirubin, Total 0.5 mg/dL (0.0-1.1); Ca. Corrected For Albumin 9.2 mg/dL (8.4-10.2); Carbon Dioxide 27.5 mmol/L (24-32.6); Potassium 3.5 mmol/L (3.4-4.6); Total Protein 4.4 gm/dL (6.2-8.2)
[2019-01-02] MEDS: PANTOPRAZOLE SODIUM 40 MG in NORMAL SALINE 100 ML IV SCH (08:29)
[2019-01-02] MEDS: METOPROLOL SUCCINATE 25 MG TABLET.SA PO SCH (08:30)
[2019-01-02] MEDS: ASPIRIN 81 MG TAB.CHEW PO SCH (08:30)
[2019-01-02] MEDS: CLOTRIMAZOLE/BETAMET DIPROP 15 APPL TUBE TP SCH ×2 (08:30→20:22)
[2019-01-02] MEDS: DULoxetine HCL 30 MG CAPSULE.SA PO SCH (08:30)
--- NOTE | 2019-01-02 09:34 | PN ---
Subjective - Date and Time Seen Date: 01/02/19 Time: 09:29 Subjective Narrative: He feels better . Did not wake up with abdominal pain today. he still does not want TPN. Objective - Review of Systems Generalized/Overall Review: Denies: Weakness, Chills, Fever EENTM: Denies: Blurred Vision Respiratory: Denies: Cough, Shortness of Breath Cardiac: Denies: Chest Pain, Edema, Palpitations Abdominal: Denies: Nausea, Vomiting, Abdominal Pain Genitourinary Symptoms: Denies: Urgency, Frequency Musculoskeletal Complaints: Denies: Joint Pain Neurological: Denies: Headache Skin: Reports: Rash. Denies: Lesions Endocrine: Denies: Intolerance to Cold, Intolerance to Heat Misc: All systems neg except as marked - Vitals Vitals: Last Vital Signs Temp 37.0 C 01/02/19 07:16 Pulse 72 01/02/19 08:30 Resp 12 01/02/19 07:16 BP 143/81 H 01/02/19 08:30 Pulse Ox 98 01/02/19 07:16 - Abnormal Lab Findings Abnormal Lab Findings: Abnormal Lab Results 01/02/19 Range/Units 05:30 Chloride 107 H (97-106) mmol/L BUN 2 L (6-23) mg/dL Est GFR (Non-Af Amer) 176 H (60-130) mL/min BUN/Creatinine Ratio 3.8 L (9.0-21.6) Alkaline Phosphatase 248 H (50-170) U/L Total Protein 4.4 L (6.2-8.2) gm/dL Albumin 2.1 L (3.4-5.0) gm/dl Amylase 116 H (25-115) U/L Lipase 1091 H (73-393) U/L - Exam Constitutional: Present: Alert, Oriented x3, Cooperative ENT Exam: Present: hearing grossly normal Neck: Present: supple Respiratory: Present: normal breath sounds, No rales, No wheezing Cardiovascular/Chest: Present: regular rate, rhythm, no gallop, no JVD Abdomen: Present: Normal bowel sounds, soft, nontender, nondistended Extremity: Present: no pedal edema, no calf tenderness Assessment/Plan - Problems/Diagnosis (1) Acute pancreatitis Problem: Acute Qualifiers: Pancreatitis type: alcohol induced Narrative: Lipase continues ot go down. he feels he can take water now and/or jello but do es not want broth as it usually gives him abdominal pain. he does not want TPN. he has had many bouts of pancreatitis and he says he usually gets better with slow resumption of his diet. (2) Rash Problem: Acute (3) EtOH dependence Problem: Chronic (4) HTN (hypertension) Problem: Chronic (5) Depression Problem: Chronic (6) CAD (coronary artery disease) Problem: Chronic Qualifiers: Coronary Disease-Associated Artery/Lesion type: [place] artery [place] vs. transplanted heart: [place] heart Associated angina: without angina Qualified Code(s): I25.10 - Atherosclerotic heart disease of [place] coronary artery without angina pectoris (7) History of cerebellar hemorrhage Problem: Chronic
[2019-01-02] MEDS: NORTRIPTYLINE HCL 25 MG CAPSULE PO SCH (20:23)
[2019-01-03] MEDS: HYDROmorphone HCL 1 MG/ML DISP.SYRIN IV PRN ×2 (01:30→05:31)
[2019-01-03] MEDS: POTASSIUM CHLORIDE 20 MEQ in DEXTROSE 5%-NORMAL SALINE 990 ML IV SCH (06:46)
[2019-01-03 08:19] LABS: Albumin * 2.1 gm/dl (3.4-5.0); Anion Gap 7.7 mmol/L (6.8-13.8); Bilirubin, Total 0.3 mg/dL (0.0-1.1); Ca. Corrected For Albumin 9.1 mg/dL (8.4-10.2); Calcium * 7.9 mg/dL (7.9-10.9); Carbon Dioxide 28.8 mmol/L (24-32.6); Potassium 3.5 mmol/L (3.4-4.6); Total Protein 4.6 gm/dL (6.2-8.2)
[2019-01-03 08:43] LABS: BUN/Creatinine Ratio 1.9 (9.0-21.6)
[2019-01-03] MEDS: PANTOPRAZOLE SODIUM 40 MG in NORMAL SALINE 100 ML IV SCH (08:59)
[2019-01-03] MEDS: DULoxetine HCL 30 MG CAPSULE.SA PO SCH (09:00)
[2019-01-03] MEDS: METOPROLOL SUCCINATE 25 MG TABLET.SA PO SCH (09:00)
[2019-01-03] MEDS: ASPIRIN 81 MG TAB.CHEW PO SCH (09:00)
[2019-01-03] MEDS: CLOTRIMAZOLE/BETAMET DIPROP 15 APPL TUBE TP SCH (09:01)
--- NOTE | 2019-01-03 12:13 | DS ---
(1) Acute pancreatitis Diagnosis(s): clinically resolved Problem: Resolved Qualifiers: Pancreatitis type: alcohol induced (2) Rash Diagnosis(s): improved siginificantly Problem: Acute (3) EtOH dependence Problem: Chronic (4) HTN (hypertension) Problem: Chronic (5) Depression Problem: Chronic (6) CAD (coronary artery disease) Problem: Chronic Qualifiers: Coronary Disease-Associated Artery/Lesion type: [place] artery [place] vs. transplanted heart: [place] heart Associated angina: without angina Qualified Code(s): I25.10 - Atherosclerotic heart disease of [place] coronary artery without angina pectoris (7) History of cerebellar hemorrhage Problem: Chronic Description of Stay: Clari Mayorga is a 48-year-old white male patient of [facility] in [place] who was admitted on 12/29/2018 for abdominal pain, epigastric in location. The patient was in his usual self, until he woke up on the day of admission and developed sharp epigastric abdominal pain, 10+/10 associated with dry heaves and nausea and diaphoresis. it was aggravated by solid or liquid oral intake. It f elt like his pancreatitis attack in the past. The patient tried to tough it out but as the day progressed the patient's pain was intolerable so he went to our emergency room. He had an elevated white blood cell count, elevated lipase of 1850, elevated AST/ALT/alkaline phosphatase. The patient's last alcohol intake was 1 day [employer]. He says he drinks about 6 bottles of beer a day, down from a case or more than a case in the past. His last pancreatitis attack was about 1- 1/2 years ago. He does not remember his doctors telling him about gallbladder stones in the past although he has had a cholecystectomy already. He denied any fever or chills, vomiting, diarrhea, constipation, hematemesis, hematochezia, melena. He was kept NPO and progressed his diet slowly to full liquids which he tolerated . His Lipase is down to 800 from 1800. His ALT/AST has normalized and his Alk Phos is siginificantly down. He no longer is having abdominal pain even with PO intake. He is wanting to go home now. Procedures Performed: none Results and Findings: Lab Pending Results 12/29/18 21:38: WBC 14.0 H, RBC 3.73 L, Hgb 12.6 L, Hct 36.2 L, MCV 97.1, MCH 33.8 H, MCHC 34.8, RDW 15.8 H, Plt Count 199, MPV 11.2, Immature Gran % (Auto) 0.40, Immature Gran # (Auto) 0.05 H, Neutrophils % 67.9, Neutrophils % (Manual) 75, Lymphocytes % 16.4 L, Lymphocytes % (Manual) 14 L, Monocytes % 13.4 H, Monocytes % (Manual) 9, Eosinophils % 1.3, Basophils % 0.6, Nucleated RBC % 0.0, Immature Granulocytes 2 H, Neutrophils # 9.5 H, Neutrophils # (Manual) 10.5 H, Lymphocytes # 2.29, Lymphocytes # (Manual) 2.0, Monocytes # 1.9 H, Monocytes # (Manual) 1.3 H, Eosinophils # 0.2, Absolute Basophils 0.1, Platelet Estimate Normal, Hypochromasia 2+, Target Cells 1+ 12/29/18 21:38: Sodium 139, Plasma Sodium 139, Potassium 4.0, Chloride 103, Carbon Dioxide 25.9, Anion Gap 14.1 H, BUN 8, Creatinine 0.78, Est GFR (Non-Af Amer) 113 D, BUN/Creatinine Ratio 10.3, Random Glucose 79, Calcium 8.1, Calcium Adj for Albumin 8.4, Total Bilirubin 0.9, AST 149 H, ALT 169 H, Alkaline Phosphatase 423 H, Total Protein 6.3, Albumin 3.2 L, Lipase 1838 H 12/30/18 08:48: WBC 12.5 H, RBC 3.45 L, Hgb 11.8 L, Hct 34.2 L, MCV 99.1, MCH 34.2 H, MCHC 34.5, RDW 16.2 H, Plt Count 191, MPV 11.3, Immature Gran % (Auto) 0.20, Immature Gran # (Auto) 0.03, Neutrophils % 59.0, Neutrophils % (Manual) Cancelled, Band Neuts % (Manual) Cancelled, Lymphocytes % 24.1, Lymphocytes % (Manual) Cancelled, Monocytes % 12.8 H, Monocytes % (Manual) Cancelled, Eosinophils % 3.4 H, Eosinophils % (Manual) Cancelled, Basophils % 0.5, Basophils % (Manual) Cancelled, Nucleated RBC % 0.0, Immature Granulocytes Cancelled, Neutrophils # 7.4 H, Neutrophils # (Manual) Cancelled, Lymphocytes # 3.02, Lymphocytes # (Manual) Cancelled, Monocytes # 1.6 H, Monocytes # (Manual) Cancelled, Eosinophils # 0.4, Eosinophils # (Manual) Cancelled, Basophils # (Manual) Cancelled, Absolute Basophils 0.1, Nucleated RBCs Cancelled, Differential Comment Cancelled, Hypersegmented Polys Cancelled, Atypic/Reactive Lymphs Cancelled, Smudge Cells Cancelled, Other Cell Type Cancelled, Toxic Granulation Cancelled, Toxic Vacuolation Cancelled, Dohle Bodies Cancelled, Platelet Estimate Cancelled, Giant Platelets Cancelled, RBC Morphology Cancelled, Polychromasia Cancelled, Hypochromasia Cancelled, Poikilocytosis Cancelled, Basophilic Stippling Cancelled, Anisocytosis Cancelled, Microcytosis Cancelled, Macrocytosis Cancelled, Spherocytes Cancelled, Sickle Cells Cancelled, Target Cells Cancelled, Tear Drop Cells Cancelled, Ovalocytes Cancelled, Stomatocytes Cancelled, Phipps-Dormont Bodies Cancelled, Traci Cells Cancelled, Elliptocytes Cancelled, Rouleaux Cancelled, Schistocytes Cancelled, Morphology Comment Cancelled 12/30/18 08:48: Sodium 140, Plasma Sodium 140, Potassium 3.4, Chloride 107 H, Carbon Dioxide 25.7, Anion Gap 10.7, BUN 6, Creatinine 0.75, Est GFR (Non-Af Amer) 118, BUN/Creatinine Ratio 8.0 L, Random Glucose 94, Calcium 7.2 L, Calcium Adj for Albumin 8.0 L, Total Bilirubin 0.7, AST 124 H, ALT 133 H, Alkaline Phosphatase 369 H, Total Protein 5.4 L, Albumin 2.6 L, Amylase 161 H, Lipase 1003 H, Vitamin B12 619, Folate 17.3 12/31/18 07:18: Sodium 140, Plasma Sodium 140, Potassium 3.3 L, Chloride 107 H, Carbon Dioxide 24.9, Anion Gap 11.4, BUN 3 L, Creatinine 0.56, Est GFR (Non-Af Amer) 166 H D, BUN/Creatinine Ratio 5.4 L, Random Glucose 76, Calcium 7.4 L, Calcium Adj for Albumin 8.5, Total Bilirubin 0.7, AST 59 H, ALT 87 H, Alkaline Phosphatase 297 H, Total Protein 4.6 L, Albumin 2.2 L, Amylase 143 H, Lipase 1848 H 01/01/19 07:00: WBC 9.1 D, RBC 3.07 L, Hgb 10.4 L, Hct 30.3 L, MCV 98.7, MCH 33.9 H, MCHC 34.3, RDW 15.7 H, Plt Count 166, MPV 11.4 H, Immature Gran % (Auto) 0.30, Immature Gran # (Auto) 0.03, Neutrophils % 54.8, Lymphocytes % 27.1, Monocytes % 11.0 H, Eosinophils % 6.2 H, Basophils % 0.6, Nucleated RBC % 0.0, Neutrophils # 5.0, Lymphocytes # 2.46, Monocytes # 1.0, Eosinophils # 0.6, Absolute Basophils 0.1 01/01/19 07:00: Sodium 142, Plasma Sodium 142, Potassium 3.5, Chloride 108 H, Carbon Dioxide 29.2, Anion Gap 8.3, BUN 2 L, Creatinine 0.52, Est GFR (Non-Af Amer) 180 H, BUN/Creatinine Ratio 3.8 L, Random Glucose 84, Calcium 7.8 L, Calcium Adj for Albumin 9.1, Total Bilirubin 0.4, AST 51 H, ALT 74 H, Alkaline Phosphatase 264 H, Total Protein 4.4 L, Albumin 2.0 L, Amylase 129 H, Lipase 1358 H 01/02/19 05:30: Sodium 140, Plasma Sodium 140, Potassium 3.5, Chloride 107 H, Carbon Dioxide 27.5, Anion Gap 9.0, BUN 2 L, Creatinine 0.53, Est GFR (Non-Af Amer) 176 H, BUN/Creatinine Ratio 3.8 L, Random Glucose 106, Calcium 8.0, Calcium Adj for Albumin 9.2, Total Bilirubin 0.5, AST 46, ALT 66, Alkaline Phosphatase 248 H, Total Protein 4.4 L, Albumin 2.1 L, Amylase 116 H, Lipase 1091 H 01/03/19 07:15: Sodium 141, Plasma Sodium 141, Potassium 3.5, Chloride 108 H, Carbon Dioxide 28.8, Anion Gap 7.7, BUN 1 L, Creatinine 0.54, Est GFR (Non-Af Amer) 173 H, BUN/Creatinine Ratio 1.9 L, Random Glucose 87, Calcium 7.9, Calcium Adj for Albumin 9.1, Total Bilirubin 0.3, AST 33, ALT 56, Alkaline Phosphatase 229 H, Total Protein 4.6 L, Albumin 2.1 L, Lipase 837 H Discharge Location: Home Disposition: Home self-care Condition: Stable Discharge Activity: Activity as tolerated Discharge Diet: Low fat/chol, Full Liquids - and progress as tolerated Referrals: Yajaira Todd ARNP [Primary Care Provider] - Additional Patient Instructions (free text): Follow up with is PCP in [place] in 1 week. He was told to stop his alcohol intake and smoking habit. he will progress his diet as tolerated. Prescriptions (Any new or edited meds): Clotrimazole/Betamet Diprop [Lotrisone Cream] 1 appl TOPICAL BID #1 tube Complete Home Medications List: Complete Home Medication List: Aspirin 81 mg PO DAILY 06/17/17 Atorvastatin Calcium [Lipitor] 40 mg PO HS 06/17/17 Duloxetine HCl [Cymbalta] 60 mg PO DAILY 06/17/17 Metoprolol Succinate [Toprol Xl] 25 mg PO DAILY 06/17/17 Pantoprazole Sodium 20 mg PO DAILY 06/17/17 Morphine Sulfate 15 mg PO BID PRN 02/02/18 Nortriptyline HCl [Pamelor] 25 mg PO HS 02/02/18 Ranitidine HCl [Zantac] 300 mg PO HS 02/02/18 Albuterol Sulfate [Proair Respiclick] 180 mcg INHALATION PRN PRN 12/29/18 Baclofen 10 mg PO QID PRN 12/29/18 Clotrimazole/Betamet Diprop [Lotrisone Cream] 1 appl TOPICAL BID #1 tube 01/03/19
[2019-01-03 13:24] VITALS: BP 133/84
== END 2019-01-03 13:20 | disposition home or self-care (01) | DRG 440 ==
LOC: MS 21:05 → ER 21:05 → MS 22:24
PROVIDERS: ADMIT Internal Medicine; ATTEND Internal Medicine
CPT/HCPCS: 36415; 74019; 74020; 74177; 80053; 82150; 82607; 82746; 83690; 85025; 96361; 96374; 96375; 99285; G0378; J2405; Q9967

== ENCOUNTER 2019-07-26 17:51 | Observation (INO) ==
[2019-07-26] MEDS ORDERED: ASPIRIN 81 MG TAB.CHEW PO ONE (17:56)
[2019-07-26 18:07] LABS: Hematocrit 39.9 % (42.0-52.0); Hemoglobin 13.5 gm/dL (13.5-18.0); Mean Cell Volume 94.8 fl (78-100); Mean Corpuscular Hemoglobin 32.1 pg (27-31); Mean Corpuscular Hgb Conc 33.8 g/dl (32-36); Mean Platelet Volume 10.8 fl (8-11.3); Neutrophil # 5.4 K/mm3 (1.3-6.0); Neutrophil % 48.6 % (42-75.0); Platelet Count 285 K/mm3 (150-450); Red Blood Count 4.21 M/mm3 (4.7-6.0)
--- NOTE | 2019-07-26 18:14 | ERNOTE ---
Chest Pain/Cardiac HPI Date of Service: 07/26/19 Chief Complaint: Chest Pain Time Seen by Provider: 07/26/19 18:00 Source: patient, RN notes reviewed Exam Limitations: no limitations Immunizations: IMMUNIZATION HX Immunizations Up to Date Yes History of Influenza Vaccine No Hx Pneumococcal Vaccination No Allergies/Adverse Reactions: Allergies No Known Allergies Allergy (Verified 07/26/19 17:58) Home Medications: HOME MEDICATIONS Aspirin 81 mg PO DAILY 06/17/17 [Last Taken Unknown] Atorvastatin Calcium [Lipitor] 40 mg PO HS 06/17/17 [Last Taken Unknown] Baclofen 10 mg PO TID PRN 12/29/18 [Last Taken Unknown] Albuterol Sulfate [Proair Hfa] 2 puff INHALATION QID PRN 07/26/19 [Last Taken Unknown] Baclofen 10 mg PO BID PRN 07/26/19 [Last Taken Unknown] Duloxetine HCl 60 mg PO 07/26/19 [Last Taken Unknown] Fluticasone Furoate [Arnuity Ellipta] 50 mcg INHALATION 07/26/19 [Last Taken Unknown] Lipase/Protease/Amylase [Leonardo Hugo 24,000 Units Capsule] 1 ea PO TID 07/26/19 [Last Taken Unknown] Metoprolol Tartrate [Lopressor] 25 mg PO 07/26/19 [Last Taken Unknown] Morphine Sulfate [Morphine Sulfate ER] 30 mg PO 07/26/19 [Last Taken Unknown] Nortriptyline HCl [Pamelor] 25 mg PO 07/26/19 [Last Taken Unknown] Pantoprazole Sodium [Protonix] 20 mg PO 07/26/19 [Last Taken Unknown] Ranitidine HCl [Zantac] 150 mg PO BID 07/26/19 [Last Taken Unknown] rOPINIRole HCL [Requip] 0.5 mg PO 07/26/19 [Last Taken Unknown] Narrative: 49 yr old male with history of HTN, chest pain, HLD, two cardiac stents distal RCA 2014, tobacco dependence pancreatitis, anemia, intracranial hemorrhage, headache, nicotine dependence, and CAD presents with intermittent low mid sternal chest pain with radiation to the jaws bilaterally for the past month. Feels it has been worse the past week. Denies any SOB, nausea, vomiting, dizziness or diaphoresis. He describes his pain as aching that waxs and wanes. Rates his pain 6-7/10 presently, but feels it is improving again. Curling into a position helps to alleviate his pain. Eating does not worsen or improve his pain. He has not taken any medication at home for his pain. He quit drinking 8 months ago. He continues to smoke [address] Delmer Yi placed the two cardiac stents in the distal RCA at [facility] in [place] on in October 2014. Denies family history of heart disease. Father in early 50's due to oral cancer. Arterial risk factors: Smoker, HLD, HTN, early CAD Date (Duration): 07/26/19 Time (Timing): 18:00 Timing: intermittent - Intermittent chest pain the past month approximately twice a day lasting 2 - 5 minutes. Today he had approximately 6 episodes. The first 5 of the day lasted only two minutes. The last episode lasted 5 minutes and radiated into the jaws bilaterally. Severity/Quality: aching Location: central - low mid sternal Chest Pain Radiation: jaw - bilaterally Activities at Onset: none - Has been occurring for the past month Modifying Factors - Improves: Present: position - curled up in position Modifying Factors - Worsens: Present: nothing Nitro Today/Relief: no nitro taken today Aspirin Treatment Today: no aspirin today Associated Symptoms: Absent: headache, dizziness, syncope, cough, shortness of breath, diaphoresis, fever/chills, palpitations, heartburn, nausea, vomiting, abdominal pain, back pain Prior Chest Pain/Cardiac Workup: Reports: prior chest pain Review of Systems - Review of Systems Constitutional: Absent: recent illness, fever, diaphoresis, fatigue EYE: Present: no symptoms reported ENT: Present: other - chest pain radiates to jaws bilaterally Respiratory: Absent: shortness of breath, cough, wheezing Cardiology: Present: chest pain. Absent: palpitations, edema Gastrointestinal/Abdominal: Present: nausea. Absent: vomiting, diarrhea, abdominal pain Genitourinary: Present: no symptoms reported Musculoskeletal: Present: no symptoms reported Skin: Present: no symptoms reported Neurological: Present: no symptoms reported Endocrine: Present: no symptoms reported Hematologic/Lymphatic: Present: no symptoms reported Psych: Present: no symptoms reported Medical History (Last Reviewed 07/26/19 @ 18:12 by BRODERICK Leblanc) Chronic pain Evacuation of intracranial bleed Hx of pancreatitis Myocardial infarction hx of intracranial hemorrhage repair Surgical History: Surgical History (Last Reviewed 07/26/19 @ 18:12 by BRODERICK Leblanc) History of edgar hole surgery Hx laparoscopic cholecystectomy Hx of heart artery stent Family History: Family History (Last Reviewed 07/26/19 @ 18:12 by BRODERICK Leblanc) Other No pertinent family history Social History: (Last Reviewed 07/26/19 @ 18:12 by BRODERICK Leblanc) Tobacco: Smoking Status: Current every day smoker Physical Exam - Physical Exam General Appearance: Present: wd/wn, alert, no apparent distress, other - thin Head Exam: Present: normal inspection, no evidence of injury Eye Exam: Normal inspection: bilateral, PERRL: bilateral, EOMI: bilateral Ears, Nose, Throat: Present: normal ENT inspection, normal pharynx Neck: Present: normal inspection, nontender, supple Respiratory: Present: no respiratory distress, normal breath sounds, no accessory muscle use, chest nontender, lungs clear Cardiovascular/Chest: Present: regular rate, rhythm, no murmur, normal kj pheral pulses Gastrointestinal/Abdominal: Present: normal bowel sounds, nontender, nondistended Back Exam: Present: normal inspection, normal range of motion Extremity Exam: Present: normal inspection, non-tender, normal range of motion, no edema Neurological Exam: Present: alert, oriented, normal mood/affect, no motor/sensory deficits Skin Exam: Present: normal color, warm/dry Progress - Results and Orders Patient's Lab Results:: I have reviewed the patient's lab results. Results and Orders: Laboratory Tests 07/26/19 18:03 WBC 11.0 H RBC 4.21 L Hgb 13.5 Hct 39.9 L Plt Count 285 Laboratory Tests 07/26/19 18:03 Sodium 138 Potassium 3.5 Chloride 101 BUN 5 L D Creatinine 0.95 Est GFR (Non-Af Amer) 90 D BUN/Creatinine Ratio 5.3 L Random Glucose 91 Calcium 8.1 Total Bilirubin 0.2 AST 34 ALT 67 Alkaline Phosphatase 176 H Troponin I Less than 0.017 Total Protein 7.2 Albumin 3.5 Amylase 35 Lipase 46 L Laboratory Tests 07/26/19 18:03 B-Natriuretic Peptide 170 H - Vital Signs Patient's Vital Signs:: I have reviewed the patient's vital signs. Vital Signs: Vital Signs 07/26/19 17:53 Respiratory Rate 16 Blood Pressure 162/87 H O2 Sat by Pulse Oximetry 100 - EKG EKG #1 EKG: other - sinus bradycardia EKG read: Interp. by me - Sinus bradycardia rate 59 without any acute changes No changes when compared with prior. - X-Ray X-Ray #1 X-Ray: chest Interpretation: Reviewed by me - Negative - Progress/Reassessment Chief Complaint: Chest Pain Progress:: Improved Progress Note-Subjective: 07/26/19 19:03 Patient's chest pain was relieved with one nitroglycerin and his jaw pain decreased to 2/10. 07/26/19 20:22 Patient has been pain free. Denies any symptoms. Test results reviewed with patient and family Patient has significant risk factors: Smoker, HTN, HLD, early CAD, cardiac stents x 2 in 2014 Patient's case staffed with Dr. King who graciously accepted the patient's care. Patient will be placed on Observation for serial cardiac enzymes and EKG's. 07/26/19 20:59 Plan - Plan Plan: Will place in Observation for serial cardiac enzymes and EKG's. Will obtain an echocardiogram tomorrow. Departure Clinical Impression: Chest pain with moderate risk for cardiac etiology, Tobacco dependence CAD (coronary artery disease) Qualifiers: Coronary Disease-Associated Artery/Lesion type: unspecified vessel or lesion type [place] vs. transplanted heart: [place] heart Associated angina: angina presence unspecified Qualified Code(s): I25.10 - Atherosclerotic heart disease of [place] coronary artery without angina pectoris HTN (hypertension) Qualifiers: Hypertension type: essential hypertension Qualified Code(s): I10 - Essential (primary) hypertension Hyperlipidemia Qualifiers: Hyperlipidemia type: unspecified Qualified Code(s): E78.5 - Hyperlipidemia, unspecified - Departure Disposition: Still a patient Condition: Good
[2019-07-26] MEDS ORDERED: ONDANSETRON HCL/PF 2 MG/ML VIAL IV ONE (18:16)
[2019-07-26 18:29] LABS: BUN/Creatinine Ratio 5.3 (9.0-21.6); Blood Urea Nitrogen 5 mg/dL (6-23); Glucose * 91 mg/dL (70-110); Sodium 138 mmol/L (132-142)
[2019-07-26 18:30] LABS: ALT 67 U/L (19-67); AST 34 U/L (0-48); Albumin * 3.5 gm/dl (3.4-5.0); Alkaline Phosphatase * 176 U/L (50-170); Amylase * 35 U/L (25-115); Anion Gap 8.6 mmol/L (6.8-13.8); Bilirubin, Total 0.2 mg/dL (0.0-1.1); Ca. Corrected For Albumin 8.2 mg/dL (8.4-10.2); Calcium * 8.1 mg/dL (7.9-10.9); Carbon Dioxide 31.9 mmol/L (24-32.6); Chloride 101 mmol/L (97-106); Lipase 46 U/L (73-393); Potassium 3.5 mmol/L (3.4-4.6); Total Protein 7.2 gm/dL (6.2-8.2)
[2019-07-26] MEDS ORDERED: NITROGLYCERIN 0.4 MG/TAB BTL SL ONE (18:31)
[2019-07-26 18:32] LABS: Troponin I Less than 0.017 ng/mL (0.00-0.10)
[2019-07-26 20:37] LABS: Cocaine Ur Negative (NEGATIVE); Urine Barbiturate Negative (NEGATIVE); Urine Benzodiazepines Negative (NEGATIVE); Urine Opiates Positive (NEGATIVE); Urine PCP Negative (NEGATIVE); Urine THC Negative (NEGATIVE)
[2019-07-26] MEDS ORDERED: NITROGLYCERIN 0.4 MG/TAB BTL SL PRN (21:05)
[2019-07-26] MEDS: NORMAL SALINE 1,000 ML IV PRN (21:45)
[2019-07-26] MEDS ORDERED: BACLOFEN 10 MG TABLET PO PRN (22:21)
[2019-07-26] MEDS ORDERED: ROSUVASTATIN CALCIUM 20 MG TABLET PO SCH (22:25)
[2019-07-26] MEDS ORDERED: rOPINIRole HCL 0.5 MG TABLET PO SCH (22:26)
[2019-07-26] MEDS ORDERED: NORTRIPTYLINE HCL 25 MG CAPSULE PO SCH (22:26)
--- NOTE | 2019-07-26 22:30 | HP ---
Chief Complaint - Chief Complaint Date of Service: 07/26/19 Time of Service: 22:30 Chief Complaint: Chest Pain History of Present Illness: Mukesh is a 49 yo male with history of coronary artery disease with prior stenting. He reports over the past month he has been having more episodes of chest pain. They have only lasted a minute or two. Today he began having chest pain with radiation into his jaw but it was not going away like in the past. He presented to the [facility] ER for further evaluation. In the ER he was given nitroglycerin sublingually and the symptoms resolved. He reports currently not having any symptoms. He denies shortness of breath but reports he was having sweating. He follows with Dr. Harris for cardiology. Medical History (Last Reviewed 07/26/19 @ 21:49 by Arelis Jeronimo RN) Chronic pain Evacuation of intracranial bleed Hx of pancreatitis Myocardial infarction hx of intracranial hemorrhage repair Surgical History: Surgical History (Last Reviewed 07/26/19 @ 21:49 by Arelis Jeronimo RN) History of edgar hole surgery Hx laparoscopic cholecystectomy Hx of heart artery stent Family History: Family History (Last Reviewed 07/26/19 @ 21:49 by Arelis Jeronimo RN) Other No pertinent family history Social History: (Last Reviewed 07/26/19 @ 21:49 by Arelis Jeronimo RN) Tobacco: Smoking Status: Current every day smoker Review Of Systems (GEN) - Review of Systems Generalized/Overall Review: Absent: Weakness, Chills, Fever EENTM: Present: No Symptoms Reported Respiratory: Absent: Cough, Shortness of Breath Cardiac: Present: Chest Pain. Absent: Palpitations Abdominal: Absent: Nausea, Vomiting Genitourinary: Present: No Symptoms Reported Musculoskeletal: Present: No Symptoms Reported Neurological: Present: No Symptoms Reported Skin: Present: No Symptoms Reported Immunizations: IMMUNIZATION HX Immunizations Up to Date Yes History of Influenza Vaccine No Hx Pneumococcal Vaccination No Allergies/Adverse Reactions: Allergies Allergy/AdvReac Type Severity Reaction Status Date / Time No Known Allergies Allergy Verified 07/26/19 17:58 Home Medications: HOME MEDICATIONS Aspirin 81 mg PO DAILY 06/17/17 [Last Taken Unknown] Atorvastatin Calcium [Lipitor] 40 mg PO HS 06/17/17 [Last Taken Unknown] Baclofen 10 mg PO TID PRN 12/29/18 [Last Taken Unknown] Albuterol Sulfate [Proair Hfa] 2 puff INHALATION QID PRN 07/26/19 [Last Taken Unknown] Baclofen 10 mg PO BID PRN 07/26/19 [Last Taken Unknown] Duloxetine HCl 60 mg PO DAILY 07/26/19 [Last Taken Unknown] Fluticasone Furoate [Arnuity Ellipta] 50 mcg INHALATION DAILY 07/26/19 [Last [place] en Unknown] Lipase/Protease/Amylase [Leonardo Hugo 24,000 Units Capsule] 1 ea PO TID 07/26/19 [Last Taken Unknown] Metoprolol Tartrate [Lopressor] 25 mg PO DAILY 07/26/19 [Last Taken Unknown] Morphine Sulfate [Morphine Sulfate ER] 30 mg PO BID 07/26/19 [Last Taken Unknown] Nortriptyline HCl [Pamelor] 25 mg PO HS 07/26/19 [Last Taken Unknown] Pantoprazole Sodium [Protonix] 20 mg PO QAM 07/26/19 [Last Taken Unknown] Ranitidine HCl [Zantac] 150 mg PO BID 07/26/19 [Last Taken Unknown] rOPINIRole HCL [Requip] 0.5 mg PO HS 07/26/19 [Last Taken Unknown] Nitroglycerin 0.4 mg SUBLINGUAL Q5MIN PRN #15 tab.subl 07/27/19 [Last Taken Unknown] Exam - Exam Vital Signs: Vital Signs - Last Taken Temp 36.7 C 07/26/19 21:52 Pulse 59 L 07/26/19 21:52 Resp 20 07/26/19 21:52 BP 131/76 07/26/19 21:52 Pulse Ox 97 07/26/19 21:52 Constitutional: Present: Alert, Oriented x3, Cooperative ENT Exam: Present: hearing grossly normal Eye Exam: bilateral eye: normal inspection Respiratory: Present: lungs clear, normal breath sounds Cardiovascular/Chest: Present: regular rate, rhythm, no murmur Abdomen: Present: Normal bowel sounds, soft, nontender, nondistended Skin Exam: Present: normal color, warm/dry, no cyanosis Diagnostic Studies: Abnormal Lab Results 07/26/19 07/26/19 07/26/19 Range/Units 18:03 18:03 18:03 WBC 11.0 H (4.0-10.5) K/mm3 RBC 4.21 L (4.7-6.0) M/mm3 Hct 39.9 L (42.0-52.0) % MCH 32.1 H (27-31) pg Monocytes % 11.4 H (0.0-9) % Eosinophils % 3.5 H (0.0-3.0) % Lymphocytes # 3.92 H (1.5-3.5) k/mm3 Monocytes # 1.3 H (0.0-1.0) k/mm3 BUN 5 L D (6-23) mg/dL BUN/Creatinine Ratio 5.3 L (9.0-21.6) Calcium Adj for Albumin 8.2 L (8.4-10.2) mg/dL Alkaline Phosphatase 176 H (50-170) U/L B-Natriuretic Peptide 170 H (5-140) pg/mL Lipase 46 L (73-393) U/L Urine Opiates Screen (NEGATIVE) 07/26/19 Range/Units 20:21 WBC (4.0-10.5) K/mm3 RBC (4.7-6.0) M/mm3 Hct (42.0-52.0) % MCH (27-31) pg Monocytes % (0.0-9) % Eosinophils % (0.0-3.0) % Lymphocytes # (1.5-3.5) k/mm3 Monocytes # (0.0-1.0) k/mm3 BUN (6-23) mg/dL BUN/Creatinine Ratio (9.0-21.6) Calcium Adj for Albumin (8.4-10.2) mg/dL Alkaline Phosphatase (50-170) U/L B-Natriuretic Peptide (5-140) pg/mL Lipase (73-393) U/L Urine Opiates Screen Positive H (NEGATIVE) Laboratory Results WBC 11.0 K/mm3 (4.0-10.5) H 07/26/19 18:03 RBC 4.21 M/mm3 (4.7-6.0) L 07/26/19 18:03 Hgb 13.5 gm/dL (13.5-18.0) 07/26/19 18:03 Hct 39.9 % (42.0-52.0) L 07/26/19 18:03 MCV 94.8 fl (78-100) 07/26/19 18:03 MCH 32.1 pg (27-31) H 07/26/19 18:03 MCHC 33.8 g/dl (32-36) 07/26/19 18:03 RDW 13.0 % (11.5-14.0) 07/26/19 18:03 Plt Count 285 K/mm3 (150-450) 07/26/19 18:03 MPV 10.8 fl (8-11.3) 07/26/19 18:03 Immature Gran % (Auto) 0.20 % (0.001-0.429) 07/26/19 18:03 Immature Gran # (Auto) 0.02 K/mm3 (0.000-0.0310) 07/26/19 18:03 Neutrophils % 48.6 % (42-75.0) 07/26/19 18:03 Lymphocytes % 35.6 % (20-51) 07/26/19 18:03 Monocytes % 11.4 % (0.0-9) H 07/26/19 18:03 Eosinophils % 3.5 % (0.0-3.0) H 07/26/19 18:03 Basophils % 0.7 % (0.0-1.0) 07/26/19 18:03 Nucleated RBC % 0.0 k/mm3 (0-1) 07/26/19 18:03 Neutrophils # 5.4 K/mm3 (1.3-6.0) 07/26/19 18:03 Lymphocytes # 3.92 k/mm3 (1.5-3.5) H 07/26/19 18:03 Monocytes # 1.3 k/mm3 (0.0-1.0) H 07/26/19 18:03 Eosinophils # 0.4 k/mm3 (0.0-0.7) 07/26/19 18:03 Absolute Basophils 0.1 k/mm3 (0.0-0.1) 07/26/19 18:03 Sodium 138 mmol/L (132-142) 07/26/19 18:03 Plasma Sodium 138 mmol/L (130-142) 07/26/19 18:03 Potassium 3.5 mmol/L (3.4-4.6) 07/26/19 18:03 Chloride 101 mmol/L (97-106) 07/26/19 18:03 Carbon Dioxide 31.9 mmol/L (24-32.6) 07/26/19 18:03 Anion Gap 8.6 mmol/L (6.8-13.8) 07/26/19 18:03 BUN 5 mg/dL (6-23) L D 07/26/19 18:03 Creatinine 0.95 mg/dL (0.4-1.4) 07/26/19 18:03 Est GFR (Non-Af Amer) 90 mL/min (60-130) D 07/26/19 18:03 BUN/Creatinine Ratio 5.3 (9.0-21.6) L 07/26/19 18:03 Random Glucose 91 mg/dL (70-110) 07/26/19 18:03 Calcium 8.1 mg/dL (7.9-10.9) 07/26/19 18:03 Calcium Adj for Albumin 8.2 mg/dL (8.4-10.2) L 07/26/19 18:03 Total Bilirubin 0.2 mg/dL (0.0-1.1) 07/26/19 18:03 AST 34 U/L (0-48) 07/26/19 18:03 ALT 67 U/L (19-67) 07/26/19 18:03 Alkaline Phosphatase 176 U/L (50-170) H 07/26/19 18:03 Troponin I Less than 0.017 ng/mL (0.00-0.10) 07/26/19 18:03 B-Natriuretic Peptide 170 pg/mL (5-140) H 07/26/19 18:03 Total Protein 7.2 gm/dL (6.2-8.2) 07/26/19 18:03 Albumin 3.5 gm/dl (3.4-5.0) 07/26/19 18:03 Amylase 35 U/L (25-115) 07/26/19 18:03 Lipase 46 U/L (73-393) L 07/26/19 18:03 Urine Opiates Screen Positive (NEGATIVE) H 07/26/19 20:21 Barbiturate Screen Negative (NEGATIVE) 07/26/19 20:21 Ur Phencyclidine Scrn Negative (NEGATIVE) 07/26/19 20:21 Urine Amphetamine Negative (NEGATIVE) 07/26/19 20: U Benzodiazepines Scrn Negative (NEGATIVE) 07/26/19 20: Urine Cocaine Screen Negative (NEGATIVE) 07/26/19 20:21 Urine Marijuana (THC) Negative (NEGATIVE) 07/26/19 20:21 Assessment/Plan - Narrative Narrative: Mukesh is a 49 yo male with chest pain and history of CAD with 2 stents. Evaluation in the ER was negative for acute MS with negative troponin, no acute changes on EKG, and normal chest xray. Will admit to observation with telemetry and serial troponins and repeat EKG. - Assessment/Plan (1) Chest pain with moderate risk for cardiac etiology Problem: Acute (2) CAD (coronary artery disease) Problem: Chronic Qualifiers: Coronary Disease-Associated Artery/Lesion type: unspecified vessel or lesion type [place] vs. transplanted heart: [place] heart Associated angina: angina presence unspecified Qualified Code(s): I25.10 - Atherosclerotic heart disease of [place] coronary artery without angina pectoris
[2019-07-26] MEDS: MORPHINE SULFATE 30 MG TABLET.SA PO SCH (23:00)
[2019-07-27] MEDS: NORMAL SALINE 1,000 ML IV PRN (05:52)
[2019-07-27] MEDS ORDERED: LIPASE/PROTEASE/AMYLASE 1 CAP CAPSULE PO PRN (07:34)
[2019-07-27] MEDS ORDERED: METOPROLOL TARTRATE 25 MG TABLET PO SCH (09:00)
[2019-07-27] MEDS ORDERED: PANTOPRAZOLE SODIUM 20 MG TABLET.DR PO SCH (09:00)
[2019-07-27] MEDS ORDERED: DULoxetine HCL 20 MG CAPSULE.SA PO SCH (09:00)
[2019-07-27] MEDS ORDERED: FLUTICASONE FUROATE 50 MCG IH SCH (09:00)
[2019-07-27] MEDS ORDERED: ASPIRIN 81 MG TAB.CHEW PO SCH (09:00)
[2019-07-27] MEDS ORDERED: FAMOTIDINE 20 MG TABLET PO SCH (09:00)
[2019-07-27] MEDS: LIPASE/PROTEASE/AMYLASE 1 CAP CAPSULE PO SCH ×2 (09:04→11:02)
[2019-07-27] MEDS: MORPHINE SULFATE 30 MG TABLET.SA PO SCH (11:02)
--- NOTE | 2019-07-27 11:29 | DS ---
Date of Discharge:: 07/27/19 Hospital Course: Mukesh is a 49 yo male with history of CAD and stenting about 6 months ago. He was admitted for chest pain with radiation into his jaw that resolved with one nitroglycerin. Troponin, EKG, and chest xray were all within normal limits and showed no evidence of acute problems. He was admitted on telemetry in observation and had repeat troponins every 6 hours for a total of 3. All were undetectable and there were no changes on EKG or telemetry. He has been symptom free since getting sublingual nitroglycerin. He is medically cleared for discharge. 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 Harris at [facility] to discuss his recent chest pain. Procedures Performed: none Results and Findings: Lab Pending Results 07/26/19 18:03: WBC 11.0 H, RBC 4.21 L, Hgb 13.5, Hct 39.9 L, MCV 94.8, MCH 32.1 H, MCHC 33.8, RDW 13.0, Plt Count 285, MPV 10.8, Immature Gran % (Auto) 0.20, Immature Gran # (Auto) 0.02, Neutrophils % 48.6, Lymphocytes % 35.6, Monocytes % 11.4 H, Eosinophils % 3.5 H, Basophils % 0.7, Nucleated RBC % 0.0, Neutrophils # 5.4, Lymphocytes # 3.92 H, Monocytes # 1.3 H, Eosinophils # 0.4, Absolute Basophils 0.1 07/26/19 18:03: Sodium 138, Plasma Sodium 138, Potassium 3.5, Chloride 101, Carbon Dioxide 31.9, Anion Gap 8.6, BUN 5 L D, Creatinine 0.95, Est GFR (Non-Af Amer) 90 D, BUN/Creatinine Ratio 5.3 L, Random Glucose 91, Calcium 8.1, Calcium Adj for Albumin 8.2 L, Total Bilirubin 0.2, AST 34, ALT 67, Alkaline Phosphatase 176 H, Troponin I Less than 0.017, Total Protein 7.2, Albumin 3.5, Amylase 35, Lipase 46 L 07/26/19 18:03: B-Natriuretic Peptide 170 H 07/26/19 20:21: Urine Opiates Screen Positive H, Barbiturate Screen Negative, Ur Phencyclidine Scrn Negative, Urine Amphetamine Negative, U Benzodiazepines Scrn Negative, Urine Cocaine Screen Negative, Urine Marijuana (THC) Negative 07/27/19 00:10: Troponin I Less than 0.017 07/27/19 05:55: Troponin I Less than 0.017 Discharge Location: Home Disposition: Home self-care Condition: Good Discharge Activity: Activity as tolerated Discharge Diet: Low salt, Low fat/chol Referrals: Yajaira Todd ARNP [Primary Care Provider] - One Week To,MD Caleb [Associate] - (Next available (patient is already established, needs a follow up appt)) Problem Oriented Discharge Instructions to Patient/Family: Chest Pain Observation Prescriptions (Any new or edited meds): Nitroglycerin 0.4 mg SUBLINGUAL Q5MIN PRN #15 tab.subl PRN Reason: Chest Pain Transmission Status: Pending to [place], [place] Complete Home Medications List: Complete Home Medication List: Aspirin 81 mg PO DAILY 06/17/17 Atorvastatin Calcium [Lipitor] 40 mg PO HS 06/17/17 Baclofen 10 mg PO TID PRN 12/29/18 Albuterol Sulfate [Proair Hfa] 2 puff INHALATION QID PRN 07/26/19 Baclofen 10 mg PO BID PRN 07/26/19 Duloxetine HCl 60 mg PO DAILY 07/26/19 Fluticasone Furoate [Arnuity Ellipta] 50 mcg INHALATION DAILY 07/26/19 Lipase/Protease/Amylase [Leonardo Hugo 24,000 Units Capsule] 1 ea PO TID 07/26/19 Metoprolol Tartrate [Lopressor] 25 mg PO DAILY 07/26/19 Morphine Sulfate [Morphine Sulfate ER] 30 mg PO BID 07/26/19 Nortriptyline HCl [Pamelor] 25 mg PO HS 07/26/19 Pantoprazole Sodium [Protonix] 20 mg PO QAM 07/26/19 Ranitidine HCl [Zantac] 150 mg PO BID 07/26/19 rOPINIRole HCL [Requip] 0.5 mg PO HS 07/26/19 Nitroglycerin 0.4 mg SUBLINGUAL Q5MIN PRN #15 tab.subl 07/27/19
[2019-07-27 12:05] VITALS: BP 118/68
== END 2019-07-27 12:35 | disposition home or self-care (01) ==
LOC: MS 17:51 → ER 17:51 → MS 21:31
PROVIDERS: ADMIT Family Medicine; ATTEND Family Medicine
CPT/HCPCS: 36415; 71020; 71046; 80053; 80307; 82150; 83519; 83690; 83880; 84484; 85025; 93005; 96374; 99285; G0378; J2405